=== PATIENT | female | born 1960 | race Caucasian/White ===

== ENCOUNTER 2020-06-07 10:44 | Outpatient (REF) | payer OTHER, SELFPAY ==
--- NOTE | 2020-06-07 10:48 | MM_ITS ---
EXAMINATION: BONE DENSITOMETRY CLINICAL INDICATION: Osteopenia. COMPARISON: Previous BD dated 04/02/2017 and baseline BD dated 08/15/2010. TECHNIQUE: Using a Viewglass DXA System (software version: 13.1) manufactured by [employer], dual-energy x-ray absorptiometry was performed of the lumbar spine and left hip. The images are of good technical quality. Summary results are attached. FINDINGS: AP SPINE L1-L4: Current: BMD 1.063 g/cm2, Z-score -0.1, T-score -1.0, normal, 2.1% increase from previous, 1.6% decrease from baseline (<5% change is not significant). Prior: BMD 1.041 g/cm2. Baseline: BMD 1.080 g/cm2. LEFT FEMUR, NECK: Current: BMD 0.881 g/cm2, Z-score -0.1, T-score -1.1, osteopenia. Prior: BMD 0.805 g/cm2. Baseline: BMD 0.891 g/cm2. LEFT FEMUR, TOTAL: Current: BMD 0.958 g/cm2, Z-score 0.3, T-score -0.4, normal, 3.7% increase from previous, 4.1% increase from baseline (<5% change is not significant). Prior: BMD 0.924 g/cm2. Baseline: BMD 1.080 g/cm2. IDENTIFIED RISK FACTORS: Menopause, family history (parent hip fracture). HISTORY OF FRACTURE: None listed. MEDICATIONS: None listed. MM/XR DEXA axial skeleton IMPRESSION: 1. DIAGNOSIS: Osteopenia based on the lowest T-score value of -1.1 in the femoral neck applying World Health Organization criteria. 2. 10-YEAR FRACTURE RISK PREDICTION, FRAX: Major osteoporotic fracture (clinical spine, forearm, hip or shoulder) 7.8%. Hip fracture 0.2%. 3. Treatment Recommendations: NOF guidelines recommend consideration for treatment in postmenopausal women and men age 50 and older presenting with the following: -A hip or vertebral (clinical or morphometric) fracture. -T-score less than or equal to -2.5 at the femoral neck or spine after appropriate evaluation to exclude secondary causes. -Low bone mass at the hip or spine and a 10-year fracture probability by FRAX of greater than or equal to 3% for hip fracture or greater than or equal to 20% for major osteoporotic fracture based on the [place] adapted WHO algorithm. 4. Other Recommendations: All treatment decisions require clinical judgment and consideration of individual patient factors, including patient preferences, comorbidities, previous drug use, risk factors not captured in the FRAX model (e.g. frailty, falls, vitamin D deficiency, increased bone turnover, interval significant decline in bone density) and possible under or overestimation of fracture risk by FRAX. Additional medical evaluation for secondary cause of low bone mineral density may be appropriate. FUTURE SCAN RECOMMENDATION: People with diagnosed cases of osteoporosis or at high risk for fracture should have regular bone mineral density tests. For patients eligible for Medicare, routine testing is allowed once every 2 years. The testing frequency can be increased to one year for patients who have rapidly progressing disease, those who are receiving or discontinuing medical therapy to restore bone mass, or have additional risk factors.
== END 2020-06-07 10:45 | disposition home or self-care (01) ==
LOC: HO.MAMMO 10:44
PROVIDERS: PCP Internal Medicine; Visit Provider Internal Medicine
DX: M85.80 Other specified disorders of bone density and structure, unspecified site (principal); Z78.0 Asymptomatic menopausal state
CPT/HCPCS: 77080

== ENCOUNTER → 2020-08-28 08:47 | Outpatient (BNVA) | payer OTHER, SELFPAY | PROVIDERS: PCP Internal Medicine; Visit Provider Nurse Practitioner Family ==

== ENCOUNTER → 2020-09-17 09:56 | Outpatient (REF) | payer OTHER, SELFPAY | LOC: HO.SL 09:56 | PROVIDERS: PCP Internal Medicine; Visit Provider Nurse Practitioner Family | DX: Z13.89 Encounter for screening for other disorder (principal) ==

== ENCOUNTER 2021-04-26 12:27 | Outpatient (REF) | payer OTHER, SELFPAY ==
--- NOTE | ~2021-04-26 | US_ITS ---
EXAMINATION: US DIAGNOSTIC ULTRASOUND BREAST, LEFT CLINICAL INFORMATION: Breast pain. COMPARISON: Mammography of same day. TECHNIQUE: Ultrasound of the breast is performed with real-time orona scale imaging and color Doppler. FINDINGS: Targeted left breast ultrasound did not demonstrate any suspicious abnormal mass. No region of architectural distortion. A normal-appearing lymph node is seen at the 3 o'clock location. Results are discussed with the patient at time of visit. US/US breast LT limited IMPRESSION: No mammographic or ultrasound evidence of malignancy. ASSESSMENT: BI-RADS 1: Negative RECOMMENDATION: Routine annual mammography screening due in 12 months.
--- NOTE | ~2021-04-26 | US_ITS ---
EXAMINATION: US DIAGNOSTIC ULTRASOUND BREAST, RIGHT CLINICAL INFORMATION: Pain. COMPARISON: Mammography of same day. TECHNIQUE: Ultrasound of the breast is performed with real-time orona scale imaging and color Doppler. FINDINGS: Targeted right breast ultrasound did not demonstrate any abnormal cystic or solid mass. No region of abnormal distal sound shadowing appreciated. Results are discussed with the patient at time of visit. US/US breast RT limited IMPRESSION: No mammographic or ultrasound evidence of malignancy. ASSESSMENT: BI-RADS 1: Negative RECOMMENDATION: Routine annual mammography screening due in 12 months.
--- NOTE | ~2021-04-26 | MM_ITS ---
EXAMINATION: MM DIAGNOSTIC DIGITAL BREAST TOMOSYNTHESIS, BILATERAL BILATERAL BREAST ULTRASOUND CLINICAL INFORMATION: Bilateral breast pain. Right breast lump 7 to 11 o'clock position. The lifetime risk of breast cancer based on the Tyrer-Cuzick Model is 5.1%. COMPARISON: Mammography: None TECHNIQUE: Digital breast tomosynthesis is performed in both the craniocaudal and mediolateral oblique views along with computer-aided detection (CAD). Synthesized 2D images are generated from the tomosynthesis. Bilateral targeted breast ultrasound. FINDINGS: There are scattered areas of fibroglandular density (ACR BI-RADS breast composition Category b). There are no significant suspicious masses, abnormal calcifications, or other abnormalities. Targeted right breast ultrasound did not demonstrate any abnormal cystic or solid mass. No region of abnormal distal sound shadowing appreciated. Targeted left breast ultrasound did not demonstrate any suspicious abnormal mass. No region of architectural distortion. A normal-appearing lymph node is seen at the 3 o'clock location. Results are discussed with the patient at time of visit. MM/MM tomosynthesis diagnostic BI IMPRESSION: No mammographic or ultrasound evidence of malignancy. ASSESSMENT: BI-RADS 1: Negative RECOMMENDATION: Routine annual mammography screening due in 12 months. This patient's information was entered into a reminder system with a target due date for their next mammogram.
== END 2021-04-26 12:28 | disposition home or self-care (01) ==
LOC: HO.MAMMO 12:27
PROVIDERS: Visit Provider Internal Medicine
DX: N64.4 Mastodynia (principal); N63.11 Unspecified lump in the right breast, upper outer quadrant; N63.21 Unspecified lump in the left breast, upper outer quadrant
CPT/HCPCS: 76642; 77062; 77066

== ENCOUNTER 2021-10-17 10:57 | Outpatient (REF) | payer OTHER, SELFPAY ==
[2021-10-17 11:11] LABS: MANUAL DIFF FLAG NO
[2021-10-17 11:37] LABS: Basophils Percent Auto 0.9 % (0-2); Eosinophils Absolute Auto 0.1 X10*3/uL (0.0-0.4); Eosinophils Percent Auto 1.6 % (0-4); Hematocrit 41.3 % (37.0-47.0); Hemoglobin 14.1 g/dl (12.0-16.0); Imm Gran Abs Auto 0.02 X10*3/uL (0.00-0.03); Imm Gran Pct Auto 0.5 % (0.0-0.4); Lymphocytes Absolute Auto 1.7 X10*3/uL (1.2-4.9); Lymphocytes Percent Auto 40.2 % (20-40); Mean Corpuscular HGB Conc 34.1 g/dl (31.0-35.0); Mean Corpuscular Hemoglobin 31.6 pg (27.0-33.0); Mean Corpuscular Volume 92.6 fL (80.0-98.0); Mean Platelet Volume 9.6 fL (9.4-12.3); Monocytes Absolute Auto 0.3 X10*3/uL (0.1-1.2); Monocytes Percent Auto 6.4 % (2-11); Neutrophils Absolute Auto 2.1 x10*3/uL (2.0-8.3); Neutrophils Percent Auto 50.4 % (45-73); Platelet Count 308 X10*3/uL (160-400); Red Blood Count 4.46 X10*6/uL (4.20-5.50); Red Cell Distribution Width 12.5 % (11.0-16.0); White Blood Count 4.3 X10*3/uL (4.8-10.8)
[2021-10-17 11:53] LABS: Estimated Average Glucose 108 mg/dL; Hemoglobin A1c % 5.4 %
[2021-10-17 12:06] LABS: Appearance Urine CLEAR; Color Urine YELLOW; Glucose Urine UA NEG (NEG); Leukocyte Esterase Urine NEG (NEG); Nitrite Urine NEG (NEG); PH 5.5 (5.0-8.0); Specific Gravity - Urine >= 1.030 (1.005-1.025); Urine Blood 2+ (NEG); Urine Ketones 5 MG/DL (NEG); Urine Protein TRACE MG/DL (NEG-TRACE)
[2021-10-17 12:18] LABS: Alanine Aminotransferase 18 U/L (0-31); Albumin Level 4.3 g/dL (3.5-5.0); Alkaline Phosphatase 60 U/L (39-117); Anion Gap 11 (12-20); Aspartate Amino Transferase 21 U/L (5-31); Bilirubin Total 0.5 mg/dL (0.0-1.0); Blood Urea Nitrogen 17 mg/dL (9-16); Calcium 9.7 mg/dL (8.4-10.2); Carbon Dioxide 30 mmol/L (22-29); Chloride 106 mmol/L (96-108); Cholesterol 218 mg/dL; Estimated Glomerular Filt Rate > 60; Glucose Random 103 mg/dL (60-115); HDL Cholesterol 49 mg/dL; LDL Cholesterol Calculated 156 mg/dl; Potassium 3.7 mmol/L (3.3-5.1); Sodium 143 mmol/L (135-145); Total Protein 7.4 g/dL (6.5-8.0); Triglycerides 68 mg/dL
[2021-10-17 12:24] LABS: Thyroid Stimulating Hormone 0.63 uIU/mL (0.32-4.0); Vitamin D 25-OH Total 40.1 ng/mL (>30)
[2021-10-17 12:30] LABS: Bacteria Urine 1+ /LPF; Squamous Epithelial Cell Urine 3+ /LPF
[2021-10-17 12:31] LABS: Mucus Urine 1+ /LPF; WBC Urine 0-2 /HPF (0-4)
[2021-10-17 12:44] LABS: Folate 17.2 ng/mL (> or = 4.0); Vitamin B12 367 pg/mL (200-900)
== END 2021-10-17 10:58 | disposition home or self-care (01) ==
LOC: HO.LAB 10:57
PROVIDERS: PCP Internal Medicine; Visit Provider Internal Medicine
DX: R73.02 Impaired glucose tolerance (oral) (principal); I10 Essential (primary) hypertension; E78.00 Pure hypercholesterolemia, unspecified; M85.80 Other specified disorders of bone density and structure, unspecified site
CPT/HCPCS: 36415; 80053; 80061; 81001; 82306; 82607; 82746; 83036; 84443; 85025

== ENCOUNTER 2022-07-12 08:33 | Outpatient (REF) | payer OTHER, SELFPAY ==
--- NOTE | ~2022-07-12 | XR_ITS ---
EXAMINATION: XR ABDOMEN KUB CLINICAL INDICATION: Hematuria. COMPARISON: CT abdomen/pelvis 07/20/2009. TECHNIQUE: AP view of the abdomen. FINDINGS: No evidence of radiopaque renal calculi. Nonobstructive bowel gas pattern. Moderate colonic stool content. Small pelvic phleboliths. No acute osseous abnormalities. The visualized lung bases are clear. XR/XR KUB IMPRESSION: 1. No radiopaque renal calculi with the caveat that evaluation is mildly limited due to overlying gaseous distention and stool within the colon. If clinically deemed appropriate, correlation with an ultrasound or CT could be obtained. 2. Nonobstructive bowel gas pattern. 3. Moderate colonic stool content.
== END 2022-07-12 08:34 | disposition home or self-care (01) ==
LOC: HO.XRAY 08:33
PROVIDERS: PCP Internal Medicine; Visit Provider Internal Medicine
DX: R31.9 Hematuria, unspecified (principal)
CPT/HCPCS: 74018

== ENCOUNTER 2022-07-25 10:34 | Outpatient (REF) | payer OTHER, SELFPAY ==
--- NOTE | ~2022-07-25 | MM_ITS ---
EXAMINATION: BONE DENSITOMETRY CLINICAL INDICATION: Osteoporosis. COMPARISON: Previous BD dated 06/07/2020 and baseline BD dated 08/15/2010. TECHNIQUE: Using a Iterable DXA System (software version: 13.1) manufactured by [employer], dual-energy x-ray absorptiometry was performed of the lumbar spine and left hip. The images are of good technical quality. Summary results are attached. FINDINGS: AP SPINE L1-L4: Current: BMD 1.064 g/cm2, Z-score 0.3, T-score -1.0, normal, 0.1% increase from previous, 1.5% decrease from baseline (<5% change is not significant). Prior: BMD 1.063 g/cm2. Baseline: BMD 1.080 g/cm2. LEFT FEMUR, NECK: Current: BMD 0.850 g/cm2, Z-score -0.1, T-score -1.3, osteopenia. Prior: BMD 0.881 g/cm2. Baseline: BMD 0.891 g/cm2. LEFT FEMUR, TOTAL: Current: BMD 0.919 g/cm2, Z-score 0.3, T-score -0.7, normal, 4.1% decrease from previous, 0.1% decrease from baseline (<5% change is not significant). Prior: BMD 0.958 g/cm2. Baseline: BMD 0.920 g/cm2. IDENTIFIED RISK FACTORS: Menopause, family history (parent hip fracture). HISTORY OF FRACTURE: None listed. MEDICATIONS: Vitamin D, bisphosphonate. MM/XR DEXA axial skeleton IMPRESSION: 1. DIAGNOSIS: Osteopenia based on the lowest T-score value of -1.3 in the femoral neck applying World Health Organization criteria. 2. 10-YEAR FRACTURE RISK PREDICTION, FRAX: Not performed in this patient on estrogen or bone building treatments. 3. Treatment Recommendations: NOF guidelines recommend consideration for treatment in postmenopausal women and men age 50 and older presenting with the following: -A hip or vertebral (clinical or morphometric) fracture. -T-score less than or equal to -2.5 at the femoral neck or spine after appropriate evaluation to exclude secondary causes. -Low bone mass at the hip or spine and a 10-year fracture probability by FRAX of greater than or equal to 3% for hip fracture or greater than or equal to 20% for major osteoporotic fracture based on the [place] adapted WHO algorithm. 4. Other Recommendations: All treatment decisions require clinical judgment and consideration of individual patient factors, including patient preferences, comorbidities, previous drug use, risk factors not captured in the FRAX model (e.g. frailty, falls, vitamin D deficiency, increased bone turnover, interval significant decline in bone density) and possible under or overestimation of fracture risk by FRAX. Additional medical evaluation for secondary cause of low bone mineral density may be appropriate. FUTURE SCAN RECOMMENDATION: People with diagnosed cases of osteoporosis or at high risk for fracture should have regular bone mineral density tests. For patients eligible for Medicare, routine testing is allowed once every 2 years. The testing frequency can be increased to one year for patients who have rapidly progressing disease, those who are receiving or discontinuing medical therapy to restore bone mass, or have additional risk factors.
== END 2022-07-25 10:35 | disposition home or self-care (01) ==
LOC: HO.MAMMO 10:34
PROVIDERS: PCP Internal Medicine; Visit Provider Internal Medicine
DX: Z13.820 Encounter for screening for osteoporosis (principal); Z78.0 Asymptomatic menopausal state; M81.0 Age-related osteoporosis without current pathological fracture
CPT/HCPCS: 77080

== ENCOUNTER 2022-08-07 10:17 | Outpatient (REF) | payer OTHER, SELFPAY ==
--- NOTE | ~2022-08-07 | CT_ITS ---
EXAMINATION: CT ABDOMEN AND PELVIS WITHOUT AND WITH CONTRAST CLINICAL INFORMATION: Hematuria. COMPARISON: KUB 07/12/2022. CT abdomen pelvis 07/20/2009. TECHNIQUE: Multidetector volumetric imaging was performed of the abdomen and pelvis before and after the IV administration of 85 mL of Omnipaque 350 intravenous contrast. Sagittal and coronal reformatted images were obtained on the technologist's workstation. This CT examination was performed using dose optimization techniques as appropriate, variously including the following: *Automated exposure control *Adjustment of mA and/or kV according to patient size (this includes techniques or standardized protocols for targeted exams where dose is matched to indication/reason for exam; i.e. extremities or head) *Use of iterative reconstruction technique DLP: 627 mGy-cm FINDINGS: LUNG BASES: The visualized lung bases are unremarkable. LIVER, GALLBLADDER, AND BILIARY TREE: The liver is normal in size, shape, and attenuation. No focal hepatic lesion or biliary ductal dilatation is present. The gallbladder is unremarkable with no evidence of radiopaque gallstones, gallbladder wall thickening, or obvious pericholecystic inflammatory changes. PANCREAS: No discrete mass. No ductal dilatation. SPLEEN: Normal. ADRENAL GLANDS: No adrenal mass. KIDNEYS AND URETERS: The kidneys are normal in size, shape, and attenuation. No hydronephrosis, hydroureter, or calculi seen. No perinephric stranding. BLADDER: Unremarkable GASTROINTESTINAL TRACT: Small hiatal hernia. The small bowel is normal in caliber. The appendix is normal. Severe diverticulosis of the colon. ABDOMINAL WALL: No significant hernia is appreciated. LYMPH NODES: No lymphadenopathy. VASCULAR: No aortic aneurysm. Mild atherosclerosis. PELVIC VISCERA: The uterus and adnexa are unremarkable. OSSEOUS STRUCTURES: No suspicious osseous lesions. CT/CT abdomen pelvis wo/w IV con IMPRESSION: No nephrolithiasis or hydronephrosis. No suspicious renal mass. Colonic diverticulosis. Fleischner guidelines were followed.
[2022-08-07 10:29] LABS: MANUAL DIFF FLAG NO
[2022-08-07 11:36] LABS: Basophils Percent Auto 0.5 % (0-2); Eosinophils Absolute Auto 0.1 X10*3/uL (0.0-0.4); Eosinophils Percent Auto 1.7 % (0-4); Hematocrit 40.9 % (37.0-47.0); Hemoglobin 13.7 g/dl (12.0-16.0); Imm Gran Abs Auto 0.02 X10*3/uL (0.00-0.03); Imm Gran Pct Auto 0.3 % (0.0-0.4); Lymphocytes Percent Auto 30.1 % (20-40); Mean Corpuscular HGB Conc 33.5 g/dl (31.0-35.0); Mean Corpuscular Hemoglobin 31.9 pg (27.0-33.0); Mean Corpuscular Volume 95.3 fL (80.0-98.0); Mean Platelet Volume 9.8 fL (9.4-12.3); Monocytes Absolute Auto 0.5 X10*3/uL (0.1-1.2); Monocytes Percent Auto 8.1 % (2-11); Neutrophils Absolute Auto 3.9 x10*3/uL (2.0-8.3); Neutrophils Percent Auto 59.3 % (45-73); Platelet Count 329 X10*3/uL (160-400); Red Blood Count 4.29 X10*6/uL (4.20-5.50); Red Cell Distribution Width 12.8 % (11.0-16.0); White Blood Count 6.5 X10*3/uL (4.8-10.8)
[2022-08-07 11:49] LABS: Estimated Average Glucose 111 mg/dL; Hemoglobin A1c % 5.5 %
[2022-08-07 12:13] LABS: Urine Cytology See Pathology rpt
[2022-08-07 12:14] LABS: Alanine Aminotransferase 20 U/L (0-31); Albumin Level 4.5 g/dL (3.5-5.0); Alkaline Phosphatase 79 U/L (39-117); Anion Gap 14 (12-20); Aspartate Amino Transferase 18 U/L (5-31); Bilirubin Total 0.5 mg/dL (0.0-1.0); Blood Urea Nitrogen 24 mg/dL (9-16); Calcium 9.6 mg/dL (8.4-10.2); Carbon Dioxide 28 mmol/L (22-29); Chloride 103 mmol/L (96-108); Cholesterol 217 mg/dL; Estimated Glomerular Filt Rate > 60; Glucose Random 98 mg/dL (60-115); HDL Cholesterol 58 mg/dL; LDL Cholesterol Calculated 143 mg/dl; Sodium 141 mmol/L (135-145); Total Protein 7.4 g/dL (6.5-8.0); Triglycerides 81 mg/dL
[2022-08-07 12:18] LABS: Folate 17.8 ng/mL (> or = 4.0); Free T4 (Free Thyroxine) 0.99 ng/dL (0.71-1.85); Thyroid Stimulating Hormone 0.94 uIU/mL (0.32-4.0); Vitamin B12 351 pg/mL (200-900); Vitamin D 25-OH Total 32.9 ng/mL (>30)
[2022-08-07 12:45] LABS: Appearance Urine Clear; Color Urine Dark Yellow; Glucose Urine UA Negative (Negative); Leukocyte Esterase Urine Negative (Negative); Nitrite Urine Negative (Negative); PH 5.5 (5.0-9.0); Specific Gravity - Urine >= 1.030 (1.005-1.025); UMIC TRIGGER UA YES; Urine Blood Small (1+) (Negative); Urine Ketones Negative (Negative); Urine Protein 30 (1+) mg/dL (Neg-Trace)
[2022-08-07 12:52] LABS: Bacteria Urine None Seen (None Seen); Squamous Epithelial Cell Urine 0-2 /HPF (0-2); WBC Urine 0-5 /HPF (0-5)
[2022-08-07] MEDS: iohexoL 350 MG/ML 100 ML INFUS..BTL IV (13:34)
== END 2022-08-07 10:18 | disposition home or self-care (01) ==
LOC: HO.CT 10:17
PROVIDERS: PCP Internal Medicine; Visit Provider Internal Medicine
DX: R31.9 Hematuria, unspecified (principal); E78.00 Pure hypercholesterolemia, unspecified; R73.02 Impaired glucose tolerance (oral)
CPT/HCPCS: 36415; 74178; 80053; 80061; 81001; 82306; 82607; 82746; 83036; 84439; 84443; 85025; 88112; Q9967

== ENCOUNTER 2022-09-05 08:44 | Outpatient (REF) | payer OTHER, SELFPAY ==
[2022-09-05 15:12] LABS: CT PCR NOT DETECTED (Not Detect.); NG PCR NOT DETECTED (Not Detect.)
[2022-09-06 15:10] LABS: BV Int Neg Control Negative (Negative); BV Int Pos Control Positive (Positive)
[2022-09-09 13:49] LABS: HPV mRNA E6/E7 rflx Not Detected (Not Detected)
== END 2022-09-05 08:45 | disposition home or self-care (01) ==
LOC: HO.LNP 08:44
PROVIDERS: PCP Internal Medicine; Visit Provider Advanced Practice Midwife
DX: Z01.419 Encounter for gynecological examination (general) (routine) without abnormal findings (principal); Z11.51 Encounter for screening for human papillomavirus (HPV); R10.2 Pelvic and perineal pain; N89.8 Other specified noninflammatory disorders of vagina
CPT/HCPCS: 0353U; 87480; 87510; 87624; 87660; 88142

== ENCOUNTER 2022-09-26 14:39 | Outpatient (REF) | payer OTHER, SELFPAY ==
--- NOTE | ~2022-09-26 | MM_ITS ---
EXAMINATION: MM DIAGNOSTIC DIGITAL BREAST TOMOSYNTHESIS, BILATERAL TARGETED RIGHT BREAST ULTRASOUND CLINICAL INFORMATION: Lump felt by patient's physician at the 5 o'clock position. The lifetime risk of breast cancer based on the Tyrer-Cuzick Model is 5%. COMPARISON: Mammography: 04/26/2021 and studies dating back to 06/21/2018. TECHNIQUE: Digital breast tomosynthesis is performed in both the craniocaudal and mediolateral oblique views along with computer-aided detection (CAD). Synthesized 2D images are generated from the tomosynthesis. Targeted right breast ultrasound. FINDINGS: There are scattered areas of fibroglandular density (ACR BI-RADS breast composition Category b). There are no significant masses, abnormal calcifications, or other abnormalities. Targeted right breast ultrasound did not demonstrate any abnormal cystic or solid masses. No region of abnormal distal sound shadowing was appreciated. Results are discussed with the patient at time of visit. MM/MM tomosynthesis diagnostic BI IMPRESSION: There are no significant changes from prior study. ASSESSMENT: BI-RADS 1: Negative. RECOMMENDATION: Routine annual mammography screening due in 12 months. Clinical follow up for palpable abnormality not seen on imaging. This patient's information was entered into a reminder system with a target due date for their next mammogram.
== END 2022-09-26 14:40 | disposition home or self-care (01) ==
LOC: HO.MAMMO 14:39
PROVIDERS: PCP Internal Medicine; Visit Provider Internal Medicine
DX: N63.14 Unspecified lump in the right breast, lower inner quadrant (principal)
CPT/HCPCS: 76642; 77062; 77066

== ENCOUNTER 2022-10-02 14:08 | Outpatient (REF) | payer OTHER, SELFPAY ==
--- NOTE | ~2022-10-02 | US_ITS ---
EXAMINATION: US PELVIS CLINICAL INFORMATION: Pain COMPARISON: Previous CT of the abdomen and pelvis July 2022 and pelvic ultrasound April 2019 TECHNIQUE: Ultrasound of the pelvis is performed using both transabdominal and transvaginal transducers along with Doppler. Transvaginal imaging is performed due to inadequate visualization transabdominally. FINDINGS: The uterus is anteverted and measures 6.3 x 3.3 x 4.8 cm in dimension. The uterus is heterogeneous. There are multiple hyperechoic foci probably calcifications. There is an 1.8 x 1.6 x 2.0 cm focal lesion in the fundus questionable for a fibroid. This is decreased in size from prior exam when this measured 2.5 x 2.2 x 2.5 cm. There is a small 3 mm cyst in the lower uterine segment. Endometrial thickness is normal measuring 0.5 cm. There are nabothian cysts in the cervix. The right ovary is normal and measures 1.7 x 0.8 x 1.4 cm. The left ovary is not seen. There is no fluid in the pelvis. US/US pelvic and transvaginal IMPRESSION: Heterogeneous-appearing uterus. Small fundal uterine fibroid. Normal thickness endometrium. Normal right ovary. Left ovary not seen.
== END 2022-10-02 14:09 | disposition home or self-care (01) ==
LOC: HO.US 14:08
PROVIDERS: PCP Internal Medicine; Visit Provider Advanced Practice Midwife
DX: R10.2 Pelvic and perineal pain (principal)
CPT/HCPCS: 76830; 76856

== ENCOUNTER → 2022-10-30 08:30 | Outpatient (BNVA) | payer OTHER, SELFPAY | PROVIDERS: PCP Internal Medicine; Visit Provider Advanced Practice Midwife | DX: Z01.818 Encounter for other preprocedural examination (principal); K21.9 Gastro-esophageal reflux disease without esophagitis; K59.01 Slow transit constipation; Z71.2 Person consulting for explanation of examination or test findings; N64.4 Mastodynia | CPT/HCPCS: 99202; 99212 ==

== ENCOUNTER → 2022-11-28 11:26 | Outpatient (BNVA) | payer OTHER, SELFPAY | PROVIDERS: PCP Internal Medicine; Referring Provider Advanced Practice Midwife; Visit Provider Surgery | DX: N64.4 Mastodynia (principal) | CPT/HCPCS: 99202 ==

== ENCOUNTER 2023-09-11 11:00 | Outpatient (AMB) | payer OTHER, SELFPAY ==
--- NOTE | 2023-09-11 11:02 | A.OFFVIS_ITS ---
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 hematuria Heater Tender Required: Yes Heater Tender Language: Patient Care Manager Name: Catherine CACERES Information Interpreted: non-clinical & clinical Circuit Court Magistrate: Circuit Court Magistrate Present (Catherine Ned NICKI) Accompanied by: Self / Same As Patient Allergies ibuprofen [From Motrin] Allergy (Intermediate, Verified 09/11/23 11:19) ITCHING-VAGINAL, vaginal discomfort sumatriptan [From Imitrex] Allergy (Mild, Verified 09/11/23 11:19) RASH pregabalin Allergy (Unknown, Verified 09/11/23 11:19) swelling acetaminophen Allergy (Verified 09/11/23 11:19) causes vomiting methylprednisolone Allergy (Verified 09/11/23 11:19) vamiting HPI HPI Comments History of Present Illness Details 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 She is doing well with concerns: she reports blood in her urine, no symptoms. Attempting to eat a healthy diet with calcium and vitamin D and stays active with exercise. Currently not sexually active due to husbands medical issues . Denies any vaginal dryness or irritation. STI testing offered; she declines. Last pap smear; 2020. Last mammogram; 2022. Denies any family history of breast, ovarian or colon cancer. FOR[facility]LY [facility], [facility] Medical History Breast pain, right Cervical cancer screening Colon cancer screening Breast pain Osteopenia Asthma Carpal tunnel syndrome Tarsal tunnel syndrome Impaired glucose tolerance Hypercholesterolemia Hypertension Overweight (BMI 25.0-29.9) Migraine Gastroesophageal reflux disease Surgical History (Updated 09/11/23 @ 11:30 by Dominga Moore CNM) History of hysteroscopy History of tubal ligation Keloid scar Family History Father Hypertension Mother High cholesterol Osteoporosis Maternal Aunt Brain tumor Sister Diabetes Poor high blood pressure control Brother Diabetes Poor high blood pressure control Social History Household Members Other:: grandson Housing: Apartment Alcohol intake: never Patient Tobacco Use Status: Never used Tobacco e-Cigarette/Vaping Use: Never Used Second Hand Smoke Exposure: No Current occupational status: unemployed Sexual orientation: Straight/Heterosexual Gender identity: Female Cognitive needs: No Hearing needs: No Vision needs: No Female Reproductive History Menstrual Age of Menarche: 9 Date of last pap smear: 09/05/22 Date of Mammogram: 09/26/22 Review of Systems Const All systems reviewed & are unremarkable except as noted in HPI and below Reports as per HPI Eyes Reports no additional complaints ENT Reports no additional complaints Card Reports no additional complaints Resp Reports no additional complaints GI Reports as per HPI and Reports no additional complaints Reports as per HPI Musc Reports no additional complaints Skin/Breast Reports as per HPI Neuro Reports no additional complaints Psych Reports no additional complaints Endo Reports no additional complaints Adilson/Lymph Reports no additional complaints Aller/Immun Reports no additional complaints Physical Exam Vital Signs: Last Vital Signs BP 134/80 09/11/23 11:03 BMI result Body Mass Index 26.2 Const General: cooperative, healthy appearing, no acute distress, well developed and alert Orientation/consciousness: patient oriented x3 HEENT Head: Yes normal to inspection Eyes General: appearance normal, both eyes and all related structures Neck Neck: Yes normal visual inspection Thyroid: Thyroid normal Chest Chest palpation & inspection: normal inspection of the chest and other (no puckering, dimpling, peau de orange, retraction, discharge, masses) Breast/axilla inspection: normal inspection of the breasts Breast/axilla palpation: normal palpation of the breasts Resp Effort & Inspection: normal respiratory effort GI Inspection: Yes normal to inspection Palpation (GI): Soft to palpation Rectal Exam - Female: deferred General: Yes bladder normal to palpation External Female Exam: normal external appearance and normal appearance of the urethra Speculum Exam - Vagina: normal appearance of the vagina, normal palpation, normal vaginal discharge and vagina atrophic Speculum Exam - Cervix: normal appearance of the cervix and normal palpation Bimanual exam- vagina & uterus: normal bimanual exam, normal palpation, uterine size normal, bladder normal to palpation, normal palpation and non-tender Bimanual Exam- Adnexa, other: no masses Skin General skin exam: no rashes or lesions noted Rashes: no rashes Neuro General: patient oriented x3 Cognition (Neuro): normal cognition Extrem General: Yes normal to inspection Psych Attitude: cooperative Thought process: Normal thought process present Assessment & Plan Assessment & Plan (1) Encounter for well woman exam with routine gynecological exam: Code(s): Z01.419 - Encounter for gynecological examination (general) (routine) without abnormal findings Plan Discussed: Current recommendations for pap smears per ASCCP guidelines. Breast awareness, periodic self breast exams and yearly mammogram. Maintain a healthy lifestyle, well balanced diet including Calcium 1,200 mg and Vitamin D 600 IU daily, and routine exercise. Contact the office with any postmenopausal bleeding. Patient verbalizes understanding and agrees to the plan of care. She was given opportunity to ask questions and all questions were answered to the best of my ability. 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 This note is constructed using voice recognition software. While every effort has been made to ensure accuracy, truck engine technician errors may have been included. Coding Level of Care Code Est Pt Prev Care 40-64y(57864) Diagnoses Encounter for well woman exam with routine gynecological exam Z01.419
[2023-09-11 11:03] VITALS: BP 134/80; BMI 26.2
== END 2023-09-11 13:02 | disposition home or self-care (01) ==
PROVIDERS: Visit Provider Advanced Practice Midwife
DX: Z01.419 Encounter for gynecological examination (general) (routine) without abnormal findings (principal)
CPT/HCPCS: 99396

== ENCOUNTER 2023-09-11 11:00 | Outpatient (REF) | payer OTHER, SELFPAY | END 2023-09-11 11:01 | disposition home or self-care (01) | LOC: HO.LNP 11:00 | PROVIDERS: Visit Provider Advanced Practice Midwife | DX: Z01.419 Encounter for gynecological examination (general) (routine) without abnormal findings (principal); R31.9 Hematuria, unspecified | CPT/HCPCS: 87086; 99396 ==

== ENCOUNTER 2023-09-29 11:05 | Outpatient (REF) | payer OTHER, SELFPAY | END 2023-09-29 11:06 | disposition home or self-care (01) | LOC: HO.MAMMO 11:05 | PROVIDERS: PCP Internal Medicine; Visit Provider Internal Medicine | DX: Z12.31 Encounter for screening mammogram for malignant neoplasm of breast (principal) | CPT/HCPCS: 77063; 77067 ==

== ENCOUNTER → 2023-09-29 11:15 | Outpatient (BNV) | payer OTHER, SELFPAY | PROVIDERS: PCP Internal Medicine; Visit Provider Radiology Diagnostic Radiology | DX: Z12.31 Encounter for screening mammogram for malignant neoplasm of breast (principal) | CPT/HCPCS: 77063; 77067 ==

== ENCOUNTER 2023-11-09 09:26 | Outpatient (AMB) | payer OTHER, SELFPAY ==
[2023-11-09 09:28] VITALS: BP 130/72; PULSE 82; O2SAT 98; BMI 26.3
--- NOTE | 2023-11-09 09:28 | A.OFFPC_ITS ---
Vital Signs 11/09/23 09:28 Height 5 ft 2 in Weight 144 lb BMI 26.3 BP 130/72 Blood Pressure Location Lt brachial Position Sitting Pulse 82 Pulse Source Pulse Oximeter Pulse Oximetry (%) 98 Oxygen Delivery Method Room Air Intake Visit Reasons: follow up Allergies ibuprofen [From Motrin] Allergy (Intermediate, Verified 11/09/23 09:29) ITCHING-VAGINAL, vaginal discomfort sumatriptan [From Imitrex] Allergy (Mild, Verified 11/09/23 09:29) RASH pregabalin Allergy (Unknown, Verified 11/09/23 09:29) swelling acetaminophen Allergy (Verified 11/09/23 09:29) causes vomiting methylprednisolone Allergy (Verified 11/09/23 09:29) vamiting Tobacco use date assessed: 11/09/23 Dental Screening Dental Screen Date: 11/09/23 Did you have a dental visit in the last 12 months?: Yes Did you have a dental problem in the last 6 months where you did not have access to dental care?: No Was dental information given to patient?: Patient has dentist HPI follow up HPI Details 63-year-old female with a history of ALEXUS D migraine, asthma hypertension hypercholesterolemia and impaired glucose tolerance last seen in September 2022. Bone density is up-to-date June 2022. Colonoscopy is due. Mammogram is up-to-date September 2023. BP at home 109-140 / 68 to 91 but most normal [facility] Medical History (Updated 11/09/23 @ 09:48 by Coral Espino MD) Breast pain, right Cervical cancer screening Colon cancer screening Breast pain Osteopenia Asthma Carpal tunnel syndrome Tarsal tunnel syndrome Impaired glucose tolerance Hypercholesterolemia Hypertension Overweight (BMI 25.0-29.9) Migraine Gastroesophageal reflux disease Surgical History (Updated 09/11/23 @ 11:30 by Dominga Moore CNM) History of hysteroscopy History of tubal ligation Keloid scar Family History Father Hypertension Mother High cholesterol Osteoporosis Maternal Aunt Brain tumor Sister Diabetes Poor high blood pressure control Brother Diabetes Poor high blood pressure control Social History Household Members Other:: grandson Housing: Apartment Alcohol intake: never Patient Tobacco Use Status: Never used Tobacco Tobacco use type: Cigarette e-Cigarette/Vaping Use: Never Used Second Hand Smoke Exposure: No Current occupational status: unemployed Sexual orientation: Straight/Heterosexual Gender identity: Female Cognitive needs: No Hearing needs: No Vision needs: No Female Reproductive History Menstrual Age of Menarche: 9 Questionnaire PHQ-9 Over the last 2 weeks, how often have you been bothered by any of the following problems? 1. Little interest or pleasure in doing things: not at all 2. Feeling down, depressed, or hopeless: not at all 3. Trouble falling or staying asleep, or sleeping too much: not at all 4. Feeling tired or having little energy: not at all 5. Poor appetite or overeating: not at all 6. Feeling bad about yourself - or that you are a failure or have let yourself or your family down: not at all 7. Trouble concentrating on things, such as reading the newspaper or watching television: not at all 8. Moving or speaking so slowly that other people could have noticed. Or the opposite - being so fidgety or restless that you have been moving around a lot more than usual: not at all 9. Thoughts that you would be better off or of hurting yourself in some way: not at all Total score: 0 Depression Screening Interpretation: Negative Depression Screening Done: Yes Source: Developed by Drs. Vlad Lew, Tianna Garces, To Werner and colleagues, with an educational reji from [employer]. Thrive Questionnaire Date Thrive assessed: 11/09/23 I am a: Patient What is your living situation today?: I have a steady place to live Within the past 12 months, did the food you bought not last and you didn't have the money to get more?: Never true Within the past 12 months, did you worry whether your food would run out before you got money to buy more?: Never true Do you have trouble paying for medicines?: No Do you have trouble getting transportation to medical appointments?: No Do you have trouble paying your heating and electricity bill?: No Do you have trouble taking care of your child, family member or friend?: No Do you have trouble with day-to-day activities such as bathing, preparing meals, shopping, managing finances, etc.?: No Are you currently unemployed and looking for a job?: No Are you interested in more education?: No Currently or been in a relationship where the following occur: no concerns reported THRIVE Score: 0 AUDIT C Alcohol Use Questionnaire (AUDIT-C) 1. How often do you have a drink containing alcohol?: Never 3. How often do you have six or more drinks on one occasion?: Never Total Score: 0 ANITA-7 AMB Questionnaire ANITA-7 Date ANITA - 7 assessed: 11/09/23 Feeling nervous, anxious, or on edge: 0 = Not at all Not being able to stop or control worryin = Not at all Worrying too much about different things: 0 = Not at all Trouble relaxin = Not at all Being so restless that it is hard to sit still: 0 = Not at all Becoming easily annoyed or irritable: 0 = Not at all Feeling afraid as if something awful might happen: 0 = Not at all Total ANITA-7 score (0-4 normal; 5-9 mild; 10-14 moderate; 15-21 severe): 0 Source: Developed by Drs. Vlad Lew, Tianna Garces, To Werner and colleagues, with an educational reji from [employer]. ANITA-7 Assessment Billing ANITA-7 Assessment Tool: ANITA-7 Assessment 56399 Physical exam (Primary Care) Vital Signs: Last Vital Signs Pulse 82 11/09/23 09:28 BP 130/72 11/09/23 09:28 Pulse Ox 98 11/09/23 09:28 Oxygen Delivery Method Room Air 11/09/23 09:28 BMI result Body Mass Index 26.3 Tobacco/Smoking Status: Tobacco use Status Tobacco use date assessed 11/09/23 11/09/23 09:35 Patient Tobacco Use Status Never used Tobacco 11/09/23 09:35 Tobacco use type Cigarette 11/09/23 09:35 e-Cigarette/Vaping Use Never Used 11/09/23 09:35 PHQ-9: PHQ-9 Score PHQ-9: Total score 0 11/09/23 09:46 Depression Screening Interpretation: Negative Thrive Assessment: Date of Thrive Assessment Date Thrive assessed 11/09/23 11/09/23 09:35 Currently or been in a relationship where the following occur: no concerns reported Const General: alert; No acute distress Eyes Conjunctivae: conjunctivae normal Resp Auscultation: clear to auscultation bilaterally Cardio Rate: regular rate Rhythm: regular rhythm GI Inspection: Yes normal to inspection Extrem General: Yes normal to inspection and No edema Assessment and Plan Assessment & Plan (1) Colon cancer screening: Code(s): Z12.11 - Encounter for screening for malignant neoplasm of colon Plan: Patient is reminded about colonoscopy (2) Gastroesophageal reflux disease: Code(s): K21.9 - Gastro-esophageal reflux disease without esophagitis Qualifiers: Esophagitis presence: esophagitis presence not specified Qualified Code(s): K21.9 - Gastro-esophageal reflux disease without esophagitis Plan: Avoid the foods that causes that usually spicy foods, tomato products, juices, coffee, soda and foods that your sensitive to. After eating do not lie down, allow 3-4 hours before in lie down. And keep the head of bed above 30 degrees to avoid the acid from going up. On omeprazole (3) Migraine: Code(s): G43.909 - Migraine, unspecified, not intractable, without status migrainosus Qualifiers: Intractability: intractable Migraine type: with aura Status migrainosus presence: without status migrainosus Qualified Code(s): G43.119 - Migraine with aura, intractable, without status migrainosus Plan: Have adequate sleep, keep well hydrated, eat healthy. (4) Hypertension: Code(s): I10 - Essential (primary) hypertension Plan: Continue with blood pressure medication. Decrease salt intake and exercise patient takes hydrochlorothiazide 12.5 mg once a day and amitriptyline 10 mg at bedtime (5) Hypercholesterolemia: Code(s): E78.00 - Pure hypercholesterolemia, unspecified Plan: Avoid fried foods, chicken skin, eggs, butter margarine, pastries and meat. Be it pork or beef they have a lot of cholesterol LDL goal of less than 130 and triglyceride of less than 150 (6) Impaired glucose tolerance: Code(s): R73.02 - Impaired glucose tolerance (oral) Plan: Decrease the amount of carbohydrate intake, pasta, bread, rice and potatoes are all sugar and that is aside from all the sweet stuff, remember that fruits are good but they are Sweet also. (7) Asthma: Code(s): J45.909 - Unspecified asthma, uncomplicated Plan: Continue with the albuterol inhaler (8) Osteopenia: Comment: May 2020 osteopenia June 2022 Code(s): M85.80 - Other specified disorders of bone density and structure, unspecified site Plan: Presently on alendronate 70 mg once a week. Bone density due in June 2024 Orders: Orders Comprehensive Met. Panel Today R73.02 - Impaired glucose tolerance (oral) Free T4 (Free Thyroxine) Today R73.02 - Impaired glucose tolerance (oral) Vitamin B12 and Folate Today R73.02 - Impaired glucose tolerance (oral) Complete Blood Count Auto Diff Today R73.02 - Impaired glucose tolerance (oral) Thyroid Stimulating Hormone Today R73.02 - Impaired glucose tolerance (oral) Lipid Panel Today E78.00 - Pure hypercholesterolemia, unspecified, R73.02 - Impaired glucose tolerance (oral) Vitamin D 25-OH Total Today R73.02 - Impaired glucose tolerance (oral) Hemoglobin A1c Today R73.02 - Impaired glucose tolerance (oral) Referrals Gastroenterology Referral Z12.11 - Encounter for screening for malignant neoplasm of colon Medications: Refilled sennosides (Natural Senna Laxative) 17.2 mg (2 x 8.6 mg) PO BEDTIME 180 tabs 3RF constipation K59.00 - Constipation, unspecified omeprazole 40 mg PO DAILY 90 caps 3RF K21.9 - Gastro-esophageal reflux disease without esophagitis hysusub-[id number]-NSL-[id number] 10-90-589-40 mg (Ascomp with Codeine) 1 cap PO Q6H PRN 20 caps 0RF headache 30 days R73.02 - Impaired glucose tolerance (oral) albuterol sulfate 90 mcg/actuation (Ventolin HFA) 2 puffs inhalation Q6H PRN 8.5 grams 0RF for wheezing R73.02 - Impaired glucose tolerance (oral) Coding Level of Care Code Est Pt Level 4 (99292) Diagnoses Colon cancer screening Z12.11 Gastroesophageal reflux disease, unspecified whether esophagitis present K21.9 Esophagitis presence: esophagitis presence not specified Intractable migraine with aura without status migrainosus G43.119 Intractability: intractable Migraine type: with aura Status migrainosus presence: without status migrainosus Hypertension I10 Hypercholesterolemia E78.00 Impaired glucose tolerance R73.02 Asthma J45.909 Osteopenia M85.80 Additional Codes ANITA-7 Assessment Billing - ANITA-7 Assessment Tool: ANITA-7 Assessment [id number] ([id number])
== END 2023-11-09 10:04 | disposition home or self-care (01) ==
PROVIDERS: PCP Internal Medicine; Visit Provider Internal Medicine
DX: K21.9 Gastro-esophageal reflux disease without esophagitis (principal); Z12.11 Encounter for screening for malignant neoplasm of colon; G43.119 Migraine with aura, intractable, without status migrainosus; I10 Essential (primary) hypertension; E78.00 Pure hypercholesterolemia, unspecified; R73.02 Impaired glucose tolerance (oral); J45.909 Unspecified asthma, uncomplicated; M85.80 Other specified disorders of bone density and structure, unspecified site
CPT/HCPCS: 99214

== ENCOUNTER 2024-02-09 12:30 | Outpatient (AMB) | payer OTHER, SELFPAY ==
--- NOTE | 2024-02-09 12:38 | AM.OFFWIN_ITS ---
Intake Vital Signs 02/09/24 12:39 BP 140/90 H Blood Pressure Location Lt brachial Position Sitting Pulse 89 Pulse Source Pulse Oximeter Pulse Oximetry (%) 97 Oxygen Delivery Method Room Air Intake Visit Reasons: EP- LT abdomen pain Intake Note: Patient here for left abdominal pain that has been present for about 4 days. Patient Tobacco Use Status: Never used Tobacco Allergies ibuprofen [From Motrin] Allergy (Intermediate, Verified 02/09/24 12:40) ITCHING-VAGINAL, vaginal discomfort sumatriptan [From Imitrex] Allergy (Mild, Verified 02/09/24 12:40) RASH pregabalin Allergy (Unknown, Verified 02/09/24 12:40) swelling acetaminophen Allergy (Verified 02/09/24 12:40) causes vomiting methylprednisolone Allergy (Verified 02/09/24 12:40) vamiting Do you need a note to return to daycare/school/sports/work: No HPI HPI Comments History of Present Illness Details Patient is a 63-year-old female complaining of left-sided flank pain that goes into her left abdomen for 4 days. She states she has also moving her bowels more than normal but denies any liquid, bloody or black stool. She denies any fevers nausea or vomiting. She denies any new foods or new medications or history of kidney stones. [facility] Medical History (Updated 02/09/24 @ 13:38 by Matilde Rao PA-C) Breast pain, right Cervical cancer screening Colon cancer screening Breast pain Osteopenia Asthma Carpal tunnel syndrome Tarsal tunnel syndrome Impaired glucose tolerance Hypercholesterolemia Hypertension Overweight (BMI 25.0-29.9) Migraine Gastroesophageal reflux disease Surgical History (Updated 09/11/23 @ 11:30 by Dominga Moore CNM) History of hysteroscopy History of tubal ligation Keloid scar Family History Father Hypertension Mother High cholesterol Osteoporosis Maternal Aunt Brain tumor Sister Diabetes Poor high blood pressure control Brother Diabetes Poor high blood pressure control Social History Household Members Other:: grandson Housing: Apartment Alcohol intake: never Patient Tobacco Use Status: Never used Tobacco Tobacco use type: Cigarette e-Cigarette/Vaping Use: Never Used Second Hand Smoke Exposure: No Current occupational status: unemployed Sexual orientation: Straight/Heterosexual Gender identity: Female Cognitive needs: No Hearing needs: No Vision needs: No Female Reproductive History Menstrual Age of Menarche: 9 Review of Systems Const All systems reviewed & are unremarkable except as noted in HPI and below Physical Exam Vital Signs: Last Vital Signs Pulse 89 02/09/24 12:39 BP 140/90 H 02/09/24 12:39 Pulse Ox 97 02/09/24 12:39 Oxygen Delivery Method Room Air 02/09/24 12:39 Const General: cooperative, healthy appearing, comfortable, no acute distress and well developed Orientation/consciousness: patient oriented x3 Limitations: no limitations HEENT Head: Yes normal to inspection Eyes General: appearance normal, both eyes and all related structures Neck Neck: Yes normal visual inspection and Yes full ROM Resp Effort & Inspection: normal respiratory effort and able to speak in complete sentences Auscultation: clear to auscultation bilaterally Cardio Rate: regular rate Rhythm: regular rhythm Heart sounds: normal S1 and S2 GI Inspection: Yes normal to inspection Palpation (GI): Soft to palpation and Tenderness to palpation present (GI) in the LLQ and in the LUQ Skin General skin exam: no rashes or lesions noted Neuro General: patient oriented x3 Extrem General: Yes normal to inspection Results AMB Urinalysis, Automated UA Leukoctes 0 Daryl/uL Last Edit by NATALIE Chapman on 02/09/24 13:36 UA Nitrite Negative Last Edit by NATALIE Chapman on 02/09/24 13:36 UA Urobilinogen 0.2 mg/dL Last Edit by NATALIE Chapman on 02/09/24 13:36 UA Protein 0 mg/dL Last Edit by Tiff Das CCM on 02/09/24 13:36 UA pH 7.0 Last Edit by NATALIE Chapman on 02/09/24 13:36 UA Blood 10 Ayush/uL Last Edit by NATALIE Chapman on 02/09/24 13:36 UA Specific [place] 1.010 Last Edit by NATALIE Chapman on 02/09/24 13:36 UA Ketone Negative Last Edit by NATALIE Chapman on 02/09/24 13:36 UA Bilirubin 0 mg/dL Last Edit by NATALIE Chapman on 02/09/24 13:36 UA Glucose 0 mg/dL Last Edit by NATALIE Chapman on 02/09/24 13:36 Results Reviewed Results Reviewed: Laboratory Last Values Urine pH (Auto) 7.0 02/09/24 13:35 Specific [place] (Auto) 1.010 02/09/24 13:35 Urine Protein (Auto) 0 mg/dL 02/09/24 13:35 Glucose (UA)(Auto) 0 mg/dL 02/09/24 13:35 Urine Ketones (Auto) Negative 02/09/24 13:35 Urine Blood (Auto) 10 Ayush/uL 02/09/24 13:35 Urine Nitrite (Auto) Negative 02/09/24 13:35 Urine Bilirubin (Auto) 0 mg/dL 02/09/24 13:35 Urine Urobilinogen (Auto) 0.2 mg/dL 02/09/24 13:35 Leukocyte Esterase (Auto) 0 Daryl/uL 02/09/24 13:35 Assessment & Plan Assessment & Plan (1) Kidney stone on left side: Code(s): N20.0 - Calculus of kidney Plan: UA positive for blood, CVA tenderness and left-sided abdominal/flank pain, most likely kidney stones, sent to ED to rule out hydronephrosis, further workup. Called [facility] ED with expect Plan see above Orders: Orders AMB Urinalysis Automated Today Z13.9 - Encounter for screening, unspecified Coding Level of Care Code Est Pt Level 5 (59681) Diagnoses Kidney stone on left side N20.0
[2024-02-09 12:39] VITALS: BP 140/90; PULSE 89; O2SAT 97
== END 2024-02-09 13:58 | disposition home or self-care (01) ==
PROVIDERS: PCP Internal Medicine; Visit Provider Physician Assistant
DX: N20.0 Calculus of kidney (principal)
CPT/HCPCS: 81003; 99214

== ENCOUNTER 2024-03-30 12:18 | Outpatient (AMB) | payer OTHER, SELFPAY ==
--- NOTE | 2024-03-30 12:21 | A.OFFPC_ITS ---
Vital Signs 03/30/24 12:22 Height 5 ft 2 in Weight 64.864 kg BMI 26.2 BP 132/86 Blood Pressure Location Lt brachial Position Sitting Pulse 78 Pulse Source Pulse Oximeter Pulse Oximetry (%) 98 Oxygen Delivery Method Room Air Intake Visit Reasons: Annual Exam Intake Note: Patient here for an annual physical exam Change Management Expert Required: No Accompanied by: Spouse Allergies ibuprofen [From Motrin] Allergy (Intermediate, Verified 03/30/24 12:27) ITCHING-VAGINAL, vaginal discomfort sumatriptan [From Imitrex] Allergy (Mild, Verified 03/30/24 12:27) RASH pregabalin Allergy (Unknown, Verified 03/30/24 12:27) swelling acetaminophen Allergy (Verified 03/30/24 12:27) causes vomiting methylprednisolone Allergy (Verified 03/30/24 12:27) vamiting Medication List - Last Reconciled 03/30/24 by Coral Espino, albuterol sulfate 90 mcg/actuation (Ventolin HFA) 2 puffs inhalation Q6H PRN alendronate 70 mg PO QWEEK cetirizine (Zyrtec) 10 mg PO DAILY cholecalciferol (vitamin D3) 50 mcg PO DAILY 90 days fbutbui-qbsygjekdj-CKM-caff 34-81-626-40 mg (Ascomp with Codeine) 1 cap PO Q6H PRN 30 days hydrochlorothiazide 25 mg PO DAILY lorazepam 1 mg PO BEDTIME PRN 90 days omeprazole 40 mg PO DAILY sennosides (Natural Senna Laxative) 17.2 mg (2 x 8.6 mg) PO BEDTIME Tobacco use date assessed: 11/09/23 Dental Screening Dental Screen Date: 03/30/24 Did you have a dental visit in the last 12 months?: No Did you have a dental problem in the last 6 months where you did not have access to dental care?: No Was dental information given to patient?: Patient has dentist HPI Annual Exam HPI Details 63-year-old female with a history of ALEXUS D migraine hypertension hypercholesterolemia impaired glucose tolerance asthma and osteopenia coming in for physical exam last seen in 11/16/2023. Patient's bone density is up-to-date June 2022, colon test is due, mammogram is up-to-date and up-to-date with Pap smears. Review of the notes in February 10 was in the emergency room complaining of abdominal pain left-sided CT was negative. Patient states has been drinking a lot of water till the night and so has been urinating 4 times a night. Discussed the problem of getting headaches because of not really sleeping well. Avoid drinking any fluids 2 hours before sleep. It is recommended for her to drink enough fluids during the daytime. [facility] Medical History (Updated 03/30/24 @ 12:27 by Coral Espino MD) Paronychia Snoring Breast pain, right Cervical cancer screening Colon cancer screening Osteopenia Asthma Carpal tunnel syndrome Tarsal tunnel syndrome Impaired glucose tolerance Hypercholesterolemia Hypertension Overweight (BMI 25.0-29.9) Migraine Gastroesophageal reflux disease Surgical History History of hysteroscopy History of tubal ligation Keloid scar Family History Father Hypertension Mother High cholesterol Osteoporosis Maternal Aunt Brain tumor Sister Diabetes Poor high blood pressure control Brother Diabetes Poor high blood pressure control Social History Household Members Other:: grandson Housing: Apartment Alcohol intake: never Patient Tobacco Use Status: Never used Tobacco Tobacco use type: Cigarette e-Cigarette/Vaping Use: Never Used Second Hand Smoke Exposure: No service: No Current occupational status: unemployed Sexual orientation: Straight/Heterosexual Gender identity: Female Cognitive needs: No Hearing needs: No Vision needs: No Female Reproductive History Menstrual Age of Menarche: 9 Questionnaire PHQ-9 Over the last 2 weeks, how often have you been bothered by any of the following problems? 1. Little interest or pleasure in doing things: more than half the days 2. Feeling down, depressed, or hopeless: several days 3. Trouble falling or staying asleep, or sleeping too much: several days 4. Feeling tired or having little energy: more than half the days 5. Poor appetite or overeating: several days 6. Feeling bad about yourself - or that you are a failure or have let yourself or your family down: several days 7. Trouble concentrating on things, such as reading the newspaper or watching television: several days 8. Moving or speaking so slowly that other people could have noticed. Or the opposite - being so fidgety or restless that you have been moving around a lot more than usual: several days 9. Thoughts that you would be better off or of hurting yourself in some way: not at all Total score: 10 Source: Developed by Drs. Vlad Lew, Tianna Garces, To Werner and colleagues, with an educational reji from [employer]. Thrive Questionnaire Date Thrive assessed: 03/30/24 I am a: Patient What is your living situation today?: I have a steady place to live Within the past 12 months, did the food you bought not last and you didn't have the money to get more?: Sometimes True Within the past 12 months, did you worry whether your food would run out before you got money to buy more?: Often true Do you have trouble paying for medicines?: No Do you have trouble getting transportation to medical appointments?: No Do you have trouble paying your heating and electricity bill?: No Do you have trouble taking care of your child, family member or friend?: Yes Do you have trouble with day-to-day activities such as bathing, preparing meals, shopping, managing finances, etc.?: Yes Are you currently unemployed and looking for a job?: No Are you interested in more education?: No THRIVE Score: 2 ANITA-7 AMB Questionnaire ANITA-7 Date ANITA - 7 assessed: 11/09/23 Source: Developed by Drs. Vlad Lew, Tianna Garces, To Werner and colleagues, with an educational reji from [employer]. Review of Systems Const Denies poor appetite and Denies weakness Eyes Denies no additional complaints ENT Reports Normal hearing present, Denies dizziness, Denies nasal congestion, Denies tinnitus and Denies sore throat Card Denies chest pain, Denies syncope, Denies rapid heart rate and Denies dyspnea Resp Denies cough and Denies dyspnea GI Denies change in stool character, Reports constipation, Denies diarrhea, Denies nausea and Denies vomiting Denies urinary frequency, Denies difficulty voiding and Denies dysuria Neuro Reports Normal hearing present, Denies confusion, Denies dizziness, Denies syncope and Denies weakness Psych Denies confusion Physical exam (Primary Care) Vital Signs: Last Vital Signs Pulse 78 03/30/24 12:22 BP 132/86 03/30/24 12:22 Pulse Ox 98 03/30/24 12:22 Oxygen Delivery Method Room Air 03/30/24 12:22 BMI result Body Mass Index 26.2 Tobacco/Smoking Status: Tobacco use Status Tobacco use date assessed 11/09/23 03/30/24 12:27 Patient Tobacco Use Status Never used Tobacco 03/30/24 12:27 Tobacco use type Cigarette 03/30/24 12:27 e-Cigarette/Vaping Use Never Used 03/30/24 12:27 PHQ-9: PHQ-9 Score PHQ-9: Total score 10 03/30/24 12:31 Thrive Assessment: Date of Thrive Assessment Date Thrive assessed 03/30/24 03/30/24 12:27 Const General: No confusion Orientation/consciousness: No confusion HENMT Head: Yes normocephalic Ears: external ears normal and TM's normal bilaterally Face and sinus: Yes normal facial exam Mouth: moist mucous membranes Throat: Yes tonsils normal Eyes Conjunctivae: conjunctivae normal Pupils: Equal, round and reactive pupils present and Pupil accommodation reflex normal Direct Ophthalmoscopy: normal light reflex Neck Neck: No lymphadenopathy Thyroid: Thyroid normal Chest Chest palpation & inspection: normal inspection of the chest Resp Effort & Inspection: normal respiratory effort and no audible wheezes Auscultation: clear to auscultation bilaterally, no crackles, no wheezes and lung sounds not diminished Cardio Rate: regular rate Rhythm: regular rhythm Peripheral pulses: radial pulses present and dorsalis pedis present GI Other: Patient will be seeing Gastroenterology this month Palpation (GI): no masses Auscultation: normal bowel sounds and normoactive bowel sounds Rectal Exam - Female: deferred Skin General skin exam: no rashes or lesions noted Rashes: no rashes Neuro General: No confusion Cranial nerves: Yes Equal, round and reactive pupils present and Yes Normal hearing present Cognition (Neuro): normal cognition Gait exam (Neuro): Normal gait present Motor exam (neuro): 5/5 motor strength present throughout Deep tendon reflexes (DTR's): Right brachioradialis reflex intensity grade: 2+, Left brachioradialis reflex intensity grade: 2+, Right patellar reflex intensity grade: 2+ and Left patellar reflex intensity grade: 2+ Extrem General: No edema Office Procedures Flu Questionnaire Does the patient have a severe egg allergy?: No Does the patient have severe life threatening allergies?: No Does the patient have a fever or illness today?: No Has the patient ever had Guillain-[place] Syndrome?: No Has the patient ever had any past reaction to a flu shot?: No Immunizations Fluarix Triv 5423-4404 (PF) 45 mcg (15 mcg x 3)/0.5 mL IM syringe Performing Provider: Coral Espino MD Performing Location: [facility] [place] [facility] Administered by: NICKI Taylor on 03/30/24 12:59 Dose Route Admin Location Dispensed Lot Number Expiration Date NDC [employer] 0.5 mL IM Left Deltoid 0.5 mL [id number] 12/26/24 [id number] [email or web address] VIS Given Date VIS Provided VIS Publication Date 03/30/24 Single Vaccine 21 Eligibility Eligibility Date Funding Source Not [facility] Eligible 03/30/24 Private Coding Level of Care Code Est Pt Prev Care 40-64y(55893) Diagnoses Annual physical exam Z00.00 Colon cancer screening Z12.11 Intractable migraine with aura without status migrainosus G43.119 Intractability: intractable Migraine type: with aura Status migrainosus presence: without status migrainosus Gastroesophageal reflux disease, unspecified whether esophagitis present K21.9 Esophagitis presence: esophagitis presence not specified Hypertension I10 Hypercholesterolemia E78.00 Impaired glucose tolerance R73.02 Asthma J45.909 Generalized anxiety disorder F41.1 Osteopenia M85.80 Assessment & Plan Assessment & Plan (1) Annual physical exam: Code(s): Z00.00 - Encounter for general adult medical examination without abnormal findings Category: Medical Plan: Patient is advised to eat healthy, keep well hydrated, keep active and have adequate sleep. (2) Colon cancer screening: Code(s): Z12.11 - Encounter for screening for malignant neoplasm of colon Category: Medical Plan: Patient has a schedule this month (3) Migraine: Code(s): G43.909 - Migraine, unspecified, not intractable, without status migrainosus Category: Medical Qualifiers: Intractability: intractable Migraine type: with aura Status migrainosus presence: without status migrainosus Qualified Code(s): G43.119 - Migraine with aura, intractable, without status migrainosus Plan: Keep well hydrated have adequate sleep. (4) Gastroesophageal reflux disease: Code(s): K21.9 - Gastro-esophageal reflux disease without esophagitis Category: Medical Qualifiers: Esophagitis presence: esophagitis presence not specified Qualified Code(s): K21.9 - Gastro-esophageal reflux disease without esophagitis Plan: Avoid the foods that causes that usually spicy foods, tomato products, juices, coffee, soda and foods that your sensitive to. After eating do not lie down, allow 3-4 hours before in lie down. And keep the head of bed above 30 degrees to avoid the acid from going up. (5) Hypertension: Code(s): I10 - Essential (primary) hypertension Category: Medical Plan: Continue with blood pressure medication. Decrease salt intake and exercise patient on hydrochlorothiazide 25 mg once a day (6) Hypercholesterolemia: Code(s): E78.00 - Pure hypercholesterolemia, unspecified Category: Medical Plan: Avoid fried foods, chicken skin, eggs, butter margarine, pastries and meat. Be it pork or beef they have a lot of cholesterol LDL goal of less than 130 and triglyceride of less than 150 (7) Impaired glucose tolerance: Code(s): R73.02 - Impaired glucose tolerance (oral) Category: Medical Plan: Decrease the amount of carbohydrate intake, pasta, bread, rice and potatoes are all sugar and that is aside from all the sweet stuff, remember that fruits are good but they are Sweet also. (8) Asthma: Code(s): J45.909 - Unspecified asthma, uncomplicated Category: Medical Plan: Albuterol inhaler as needed (9) Generalized anxiety disorder: Comment: decline counselling Code(s): F41.1 - Generalized anxiety disorder Category: Medical Plan: Continue with present medication (10) Osteopenia: Comment: May 2020 osteopenia June 2022 Code(s): M85.80 - Other specified disorders of bone density and structure, unspecified site Category: Medical Plan: Patient on alendronate continue with the medication and bone density next year. Orders: Orders Influenza [id number] Immunization Today Z23 - Encounter for immunization Medications: New hydrochlorothiazide 25 mg PO DAILY 90 tabs 1RF I10 - Essential (primary) hypertension Fluarix Triv [id number] (PF) (flu vacc [id number] 6mos up(PF)) 0.5 mL IM ONCE 0.5 mL 0RF NS Z23 - Encounter for immunization Refilled pztsaey-euvifjjyxp-BHA-caff 55-33-779-40 mg (Ascomp with Codeine) 1 cap PO Q6H PRN 20 caps 0RF headache 30 days R73.02 - Impaired glucose tolerance (oral) Discontinued hydrochlorothiazide Discontinued Reason: Doctor's Order 25 mg PO DAILY I10 - Essential (primary) hypertension
[2024-03-30 12:22] VITALS: BP 132/86; PULSE 78; O2SAT 98; BMI 26.2
== END 2024-03-30 12:59 | disposition home or self-care (01) ==
PROVIDERS: PCP Internal Medicine; Visit Provider Internal Medicine
DX: Z00.00 Encounter for general adult medical examination without abnormal findings (principal); Z12.11 Encounter for screening for malignant neoplasm of colon; G43.119 Migraine with aura, intractable, without status migrainosus; K21.9 Gastro-esophageal reflux disease without esophagitis; I10 Essential (primary) hypertension; E78.00 Pure hypercholesterolemia, unspecified; R73.02 Impaired glucose tolerance (oral); J45.909 Unspecified asthma, uncomplicated; F41.1 Generalized anxiety disorder; M85.80 Other specified disorders of bone density and structure, unspecified site; Z23 Encounter for immunization

== ENCOUNTER → 2024-03-30 12:18 | Outpatient (BNVA) | payer OTHER, SELFPAY | PROVIDERS: PCP Internal Medicine; Visit Provider Internal Medicine | DX: Z00.01 Encounter for general adult medical examination with abnormal findings (principal); Z23 Encounter for immunization; G43.119 Migraine with aura, intractable, without status migrainosus; K21.9 Gastro-esophageal reflux disease without esophagitis; I10 Essential (primary) hypertension; E78.00 Pure hypercholesterolemia, unspecified; R73.02 Impaired glucose tolerance (oral); J45.909 Unspecified asthma, uncomplicated; F41.1 Generalized anxiety disorder; M85.80 Other specified disorders of bone density and structure, unspecified site | CPT/HCPCS: 90471; 90656; 96127; 99396 ==

== ENCOUNTER 2024-04-26 11:14 | Outpatient (AMB) | payer OTHER, SELFPAY ==
[2024-04-26 11:16] VITALS: BP 130/74; PULSE 90; O2SAT 95; BMI 26.5
--- NOTE | 2024-04-26 11:16 | MHC.OFFVIS ---
Vital Signs 04/26/24 11:16 Height 5 ft 2 in Weight 145 lb 1.027 oz BMI 26.5 BP 130/74 Blood Pressure Location Rt brachial Position Sitting Pulse 90 Pulse Source Pulse Oximeter Pulse Oximetry (%) 95 Oxygen Delivery Method Room Air Intake Visit Reasons: [place] scrn Intake Note: Relevant Flags or Indicators ? Requires Sugar Reprocess Operator Head? Gaviota Roca presents in office today for a scheduled colo consult. ~10 year recall. CC; No recent labs, diagnostics, or med orders placed. ? Relevant GI Sx as reported per pt? None ? Hx of any recent surgeries? None Sugar Reprocess Operator Head Required: Yes Sugar Reprocess Operator Head Services: Sugar Reprocess Operator Head Present Allergies ibuprofen [From Motrin] Allergy (Intermediate, Verified 04/26/24 11:17) ITCHING-VAGINAL, vaginal discomfort sumatriptan [From Imitrex] Allergy (Mild, Verified 04/26/24 11:17) RASH pregabalin Allergy (Unknown, Verified 04/26/24 11:17) swelling acetaminophen Allergy (Verified 04/26/24 11:17) causes vomiting methylprednisolone Allergy (Verified 04/26/24 11:17) vamiting HPI HPI [place] scrn: Details: 63 year old? female here today for pre colonoscopy screening.? Patient was sent to us by her PCP.? Last colonoscopy was normal in 2012. Patient reports occasional acid reflux, taking omeprazole 40 mg and for the most part her symptoms are suppressed. Patient take Senokot daily and that helps her moving her bowels better. Patient denies any gastrointestinal symptoms in the past or at present.? Denies any personal or family history of gastrointestinal disease, colon polyps, or CRC.? Denies history of difficulty with sedation or anesthesia in the past.? Diagnosed with sleep apnea, not using CPAP. Denies any history of cardiac, renal, pulmonary, or hepatic disease.?? No history of infectious? diseases like hepatitis A, B, C, HIV or tuberculosis.? Patient is not on any anticoagulation [facility] Medical History Paronychia Snoring Breast pain, right Cervical cancer screening Colon cancer screening Osteopenia Asthma Carpal tunnel syndrome Tarsal tunnel syndrome Impaired glucose tolerance Hypercholesterolemia Hypertension Overweight (BMI 25.0-29.9) Migraine Gastroesophageal reflux disease Surgical History History of hysteroscopy History of tubal ligation Keloid scar Family History Father Hypertension Mother High cholesterol Osteoporosis Maternal Aunt Brain tumor Sister Diabetes Poor high blood pressure control Brother Diabetes Poor high blood pressure control Social History Household Members Other:: grandson Housing: Apartment Alcohol intake: never Patient Tobacco Use Status: Never used Tobacco Tobacco use type: Cigarette e-Cigarette/Vaping Use: Never Used Second Hand Smoke Exposure: No service: No Current occupational status: unemployed Sexual orientation: Straight/Heterosexual Gender identity: Female Cognitive needs: No Hearing needs: No Vision needs: No Female Reproductive History Menstrual Age of Menarche: 9 Review of Systems Const Denies weight gain and Denies weight loss ENT Reports no additional complaints, Denies dysphagia and Denies odynophagia Card Reports no additional complaints Resp Reports no additional complaints GI Denies abdominal pain, Denies belching, Denies melena, Denies bloating, Denies change in bowel habits, Denies dysphagia, Denies excessive flatus, Denies dyspepsia, Denies heartburn, Denies diarrhea, Denies loose stools, Denies nausea, Denies odynophagia and Denies vomiting Musc Reports no additional complaints Neuro Reports no additional complaints Psych Reports no additional complaints Endo Reports no additional complaints Physical Exam Vital Signs: Last Vital Signs Pulse 90 04/26/24 11:16 BP 130/74 04/26/24 11:16 Pulse Ox 95 04/26/24 11:16 Oxygen Delivery Method Room Air 04/26/24 11:16 BMI result Body Mass Index 26.5 Assessment & Plan Assessment & Plan (1) Colon cancer screening: Code(s): Z12.11 - Encounter for screening for malignant neoplasm of colon Category: Medical (2) Gastroesophageal reflux disease: Code(s): K21.9 - Gastro-esophageal reflux disease without esophagitis Category: Medical Qualifiers: Esophagitis presence: esophagitis presence not specified Qualified Code(s): K21.9 - Gastro-esophageal reflux disease without esophagitis (3) Long-term current use of proton pump inhibitor therapy: Code(s): Z79.899 - Other [facility] (current) drug therapy Plan Patient denies any GI, cardiac or respiratory symptoms.? However patient does report that she takes omeprazole daily and states that her symptoms are suppressed for the most part. Patient reports to be on this medications for very long time. Denies any nausea or vomiting. Denies any epigastric pain, however will send patient for upper endoscopy, long treatment of PPI. Avoid dietary triggers and late night snacking. Denies any issues with anesthesia in the past.? Denies any history of sleep apnea.? No history infectious diseases in the past or present.? Not on any anticoagulation therapy.? No family or personal history of colon cancer or polyps.? Patient denies melena, hematochezia, unintentional weight loss or ribbon like stools.? Discussed at length the pre-procedure,? prep, diet & medications as well as what to expect prior, during and after the procedure.?? Stressed the importance of good bowel prep.? Recommended the use of Vaseline or Calmoseptine OTC & baby wipes with bowel movements to promote comfort.? ?Patient verbalizes understanding and agrees to plan of care.? She was given the opportunity to ask questions and all questions answered.? We will see her after the procedure.? Medications: New bisacodyl (Dulcolax (bisacodyl)) take 4 tabs at noon the day before your colonoscopy 20 mg (4 x 5 mg) PO ONCE 4 tabs 0RF 1 day Z12.11 - Encounter for screening for malignant neoplasm of colon polyethylene glycol 3350 (Miralax) As directed by gastroenterology department at [facility] 238 grams PO ONCE 238 grams 0RF Z12.11 - Encounter for screening for malignant neoplasm of colon Coding Level of Care Code New Pt Level 3 (22180) Diagnoses Colon cancer screening Z12.11 Gastroesophageal reflux disease, unspecified whether esophagitis present K21.9 Esophagitis presence: esophagitis presence not specified Long-term current use of proton pump inhibitor therapy Z79.899
== END 2024-04-26 12:06 | disposition home or self-care (01) ==
PROVIDERS: PCP Internal Medicine; Visit Provider Nurse Practitioner Family
DX: K21.9 Gastro-esophageal reflux disease without esophagitis (principal); Z01.818 Encounter for other preprocedural examination; Z12.11 Encounter for screening for malignant neoplasm of colon; Z79.899 Other long term (current) drug therapy
CPT/HCPCS: 99213

== ENCOUNTER → 2024-04-26 11:14 | Outpatient (BNVA) | payer OTHER, SELFPAY | PROVIDERS: PCP Internal Medicine; Visit Provider Nurse Practitioner Family | DX: Z01.818 Encounter for other preprocedural examination (principal); K21.9 Gastro-esophageal reflux disease without esophagitis; Z79.899 Other long term (current) drug therapy | CPT/HCPCS: 99212 ==

== ENCOUNTER 2024-07-19 10:35 | Outpatient (REF) | payer OTHER, SELFPAY ==
[2024-07-19 10:47] LABS: MANUAL DIFF FLAG NO
[2024-07-19 11:44] LABS: Basophils Percent Auto 0.6 % (0-2); Eosinophils Absolute Auto 0.1 X10*3/uL (0.0-0.4); Eosinophils Percent Auto 0.7 % (0-4); Hematocrit 40.9 % (37.0-47.0); Hemoglobin 13.5 g/dl (12.0-16.0); Imm Gran Abs Auto 0.03 X10*3/uL (0.00-0.03); Imm Gran Pct Auto 0.4 % (0.0-0.4); Lymphocytes Absolute Auto 1.7 X10*3/uL (1.2-4.9); Lymphocytes Percent Auto 24.6 % (20-40); Mean Corpuscular Hemoglobin 31.2 pg (27.0-33.0); Mean Corpuscular Volume 94.5 fL (80.0-98.0); Mean Platelet Volume 9.7 fL (9.4-12.3); Monocytes Absolute Auto 0.5 X10*3/uL (0.1-1.2); Monocytes Percent Auto 6.9 % (2-11); Neutrophils Absolute Auto 4.6 x10*3/uL (2.0-8.3); Neutrophils Percent Auto 66.8 % (45-73); Platelet Count 340 X10*3/uL (160-400); Red Blood Count 4.33 X10*6/uL (4.20-5.50); Red Cell Distribution Width 12.8 % (11.0-16.0); White Blood Count 6.8 X10*3/uL (4.8-10.8)
[2024-07-19 11:51] LABS: Estimated Average Glucose 108 mg/dL; Hemoglobin A1C 125.0062 umol/L; Hemoglobin A1c % 5.4 % (<6.0); Total Hemoglobin (HGBA1C) 3507.5629 umol/L
[2024-07-19 12:47] LABS: Alanine Aminotransferase 20 U/L (0-31); Albumin Level 4.5 g/dL (3.5-5.0); Alkaline Phosphatase 62 U/L (39-117); Anion Gap 10 (12-20); Aspartate Amino Transferase 22 U/L (5-31); Bilirubin Total 0.4 mg/dL (0.0-1.0); Blood Urea Nitrogen 22 mg/dL (9-16); Calcium 9.1 mg/dL (8.4-10.2); Carbon Dioxide 33 mmol/L (22-29); Chloride 104 mmol/L (96-108); Cholesterol 189 mg/dL (<200); Estimated Glomerular Filt Rate > 60; Glucose Random 90 mg/dL (60-115); HDL Cholesterol 56 mg/dL (>40); LDL Cholesterol Calculated 115 mg/dL (<100); Potassium 3.7 mmol/L (3.3-5.1); Sodium 143 mmol/L (135-145); Triglycerides 93 mg/dL (<150)
[2024-07-19 13:06] LABS: Free T4 (Free Thyroxine) 1.21 ng/dL (0.71-1.85); Thyroid Stimulating Hormone 0.89 uIU/mL (0.32-4.0); Vitamin D 25-OH Total 51.1 ng/mL (>30)
[2024-07-19 13:14] LABS: Folate 16.2 ng/mL (> or = 4.0); Vitamin B12 437 pg/mL (200-900)
== END 2024-07-19 10:36 | disposition home or self-care (01) ==
LOC: HO.LAB 10:35
PROVIDERS: PCP Internal Medicine; Visit Provider Internal Medicine
DX: R73.02 Impaired glucose tolerance (oral) (principal); E78.00 Pure hypercholesterolemia, unspecified
CPT/HCPCS: 36415; 80053; 80061; 82306; 82607; 82746; 83036; 84439; 84443; 85025

== ENCOUNTER 2024-07-20 12:46 | Outpatient (AMB) | payer OTHER, SELFPAY ==
[2024-07-20 12:51] VITALS: BP 114/70; PULSE 86; O2SAT 95; BMI 27.1
--- NOTE | 2024-07-20 12:51 | A.OFFPC_ITS ---
Vital Signs 3 07/20/24 12:51 Height 5 ft 2 in Weight 148 lb BMI 27.1 BP 114/70 Blood Pressure Location Lt brachial Position Sitting Pulse 86 Pulse Source Pulse Oximeter Pulse Oximetry (%) 95 Oxygen Delivery Method Room Air Intake Visit Reasons: migraine, GERD Allergies ibuprofen [From Motrin] Allergy (Intermediate, Verified 07/20/24 12:52) ITCHING-VAGINAL, vaginal discomfort sumatriptan [From Imitrex] Allergy (Mild, Verified 07/20/24 12:52) RASH pregabalin Allergy (Unknown, Verified 07/20/24 12:52) swelling acetaminophen Allergy (Verified 07/20/24 12:52) causes vomiting methylprednisolone Allergy (Verified 07/20/24 12:52) vamiting Tobacco use date assessed: 07/20/24 Dental Screening Dental Screen Date: 07/20/24 Did you have a dental visit in the last 12 months?: Yes Did you have a dental problem in the last 6 months where you did not have access to dental care?: No Was dental information given to patient?: Patient has dentist HPI migraine, GERD 2 HPI0 Details The patient is a 63-year-old female presenting with routine follow-up and management of chronic conditions. She has a history of osteoporosis, currently managed with Alendronate taken weekly. The last bone density study occurred several years ago, and there is a current request for an updated evaluation. The patient has asthma, for which she occasionally uses Albuterol. She reports utilizing it irregularly, not on a weekly basis. Her hypercholesterolemia is being managed successfully with dietary adjustments, resulting in recent favorable lipid profiles. The patient has experienced a fungal infection on the toe, first noted a month prior, described as ongoing with white discoloration. She attempted self- management using creams. There is a suspected toe fracture resulting from trauma experienced one month ago. This has caused persistent pain, and she inquires about diagnostic imaging for further evaluation. She reports having had the flu recently and has been advised regarding prevalent infectious diseases such as COVID-19 and RSV, emphasizing the importance of caution during the flu season. [facility] Medical History Paronychia Snoring Breast pain, right Cervical cancer screening Colon cancer screening Osteopenia Asthma Carpal tunnel syndrome Tarsal tunnel syndrome Impaired glucose tolerance Hypercholesterolemia Hypertension Overweight (BMI 25.0-29.9) Migraine Gastroesophageal reflux disease Surgical History History of hysteroscopy History of tubal ligation Keloid scar Family History Father Hypertension Mother High cholesterol Osteoporosis Maternal Aunt Brain tumor Sister Diabetes Poor high blood pressure control Brother Diabetes Poor high blood pressure control Social History Household Members Other:: grandson Housing: Apartment Alcohol intake: never Patient Tobacco Use Status: Never used Tobacco Tobacco use type: Cigarette e-Cigarette/Vaping Use: Never Used Second Hand Smoke Exposure: No service: No Current occupational status: unemployed Sexual orientation: Straight/Heterosexual Gender identity: Female Cognitive needs: No Hearing needs: No Vision needs: No Female Reproductive History Menstrual Age of Menarche: 9 Questionnaire PHQ-9 Over the last 2 weeks, how often have you been bothered by any of the following problems? 1. Little interest or pleasure in doing things: more than half the days 2. Feeling down, depressed, or hopeless: several days 3. Trouble falling or staying asleep, or sleeping too much: several days 4. Feeling tired or having little energy: more than half the days 5. Poor appetite or overeating: several days 6. Feeling bad about yourself - or that you are a failure or have let yourself or your family down: several days 7. Trouble concentrating on things, such as reading the newspaper or watching television: several days 8. Moving or speaking so slowly that other people could have noticed. Or the opposite - being so fidgety or restless that you have been moving around a lot more than usual: several days 9. Thoughts that you would be better off or of hurting yourself in some way: not at all Total score: 10 Depression Screening Interpretation: Positive Depression Screening Done: Yes Source: Developed by Drs. Vlad Lew, Tianna Garces, To Werner and colleagues, with an educational reji from [employer]. Thrive Questionnaire Date Thrive assessed: 07/20/24 AUDIT C Alcohol Use Questionnaire (AUDIT-C) 1. How often do you have a drink containing alcohol?: Never 3. How often do you have six or more drinks on one occasion?: Never Total Score: 0 ANITA-7 AMB Questionnaire ANITA-7 Date ANITA - 7 assessed: 07/20/24 Feeling nervous, anxious, or on edge: 0 = Not at all Not being able to stop or control worryin = Not at all Worrying too much about different things: 0 = Not at all Trouble relaxin = Not at all Being so restless that it is hard to sit still: 0 = Not at all Becoming easily annoyed or irritable: 0 = Not at all Feeling afraid as if something awful might happen: 0 = Not at all Total ANITA-7 score (0-4 normal; 5-9 mild; 10-14 moderate; 15-21 severe): 0 Source: Developed by Drs. Vlad Lew, Tianna Garces, To Werner and colleagues, with an educational reji from [employer]. Physical exam (Primary Care) Vital Signs: Last Vital Signs Pulse 86 07/20/24 12:51 BP 114/70 07/20/24 12:51 Pulse Ox 95 07/20/24 12:51 Oxygen Delivery Method Room Air 07/20/24 12:51 BMI result Body Mass Index 27.1 Tobacco/Smoking Status: Tobacco use Status Tobacco use date assessed 07/20/24 07/20/24 12:54 Patient Tobacco Use Status Never used Tobacco 07/20/24 12:54 Tobacco use type Cigarette 07/20/24 12:54 e-Cigarette/Vaping Use Never Used 07/20/24 12:54 PHQ-9: PHQ-9 Score PHQ-9: Total score 10 07/20/24 13:36 Depression Screening Interpretation: Positive Thrive Assessment: Date of Thrive Assessment Date Thrive assessed 07/20/24 07/20/24 12:54 Const General: alert; No acute distress Eyes Conjunctivae: conjunctivae normal Resp Auscultation: clear to auscultation bilaterally Cardio Rate: regular rate Rhythm: regular rhythm GI Inspection: Yes normal to inspection Extrem General: Yes normal to inspection and No edema Ankle/foot/toe images: 2 1. whitish tissue interdigitally on inspection Coding Level of Care Code Est Pt Level 4 (45488) Diagnoses Colon cancer screening Z12.11 Gastroesophageal reflux disease, unspecified whether esophagitis present K21.9 Esophagitis presence: esophagitis presence not specified Intractable migraine with aura without status migrainosus G43.119 Intractability: intractable Migraine type: with aura Status migrainosus presence: without status migrainosus Hypertension I10 Hypercholesterolemia E78.00 Impaired glucose tolerance R73.02 Asthma J45.909 Osteopenia M85.80 Generalized anxiety disorder F41.1 Tinea pedis B35.3 Toe pain, right M79.674 Assessment & Plan Assessment & Plan (1) Colon cancer screening: Code(s): Z12.11 - Encounter for screening for malignant neoplasm of colon Category: Medical (2) Gastroesophageal reflux disease: Code(s): K21.9 - Gastro-esophageal reflux disease without esophagitis Category: Medical Qualifiers: Esophagitis presence: esophagitis presence not specified Qualified Code(s): K21.9 - Gastro-esophageal reflux disease without esophagitis (3) Migraine: Code(s): G43.909 - Migraine, unspecified, not intractable, without status migrainosus Category: Medical Qualifiers: Intractability: intractable Migraine type: with aura Status migrainosus presence: without status migrainosus Qualified Code(s): G43.119 - Migraine with aura, intractable, without status migrainosus (4) Hypertension: Code(s): I10 - Essential (primary) hypertension Category: Medical (5) Hypercholesterolemia: Code(s): E78.00 - Pure hypercholesterolemia, unspecified Category: Medical (6) Impaired glucose tolerance: Code(s): R73.02 - Impaired glucose tolerance (oral) Category: Medical (7) Asthma: Code(s): J45.909 - Unspecified asthma, uncomplicated Category: Medical (8) Osteopenia: Comment: May 2020 osteopenia June 2022 Code(s): M85.80 - Other specified disorders of bone density and structure, unspecified site Category: Medical (9) Generalized anxiety disorder: Comment: decline counselling Code(s): F41.1 - Generalized anxiety disorder Category: Medical (10) Tinea pedis: Code(s): B35.3 - Tinea pedis Category: Medical (11) Toe pain, right: Code(s): M79.674 - Pain in right toe(s) Category: Medical Plan - Request and perform a follow-up bone density study, as a routine evaluation for osteoporosis management. - Continue current management of asthma with Albuterol as needed. Ensure understanding of medication usage frequency and potential need for adjustment. - Monitor hypercholesterolemia; continue dietary management given successful outcomes, with continued follow-up on cholesterol levels. - Prescribe topical antifungal cream for the fungal infection on the toe, to be applied twice daily for one month. - Order an X-ray of the right toe to evaluate for possible fracture given persistent pain and trauma history. - Remind the patient of the necessity of precautions to prevent viral transmission during the current flu season, noting the risks of other circulating viruses. Orders: Orders 2 XR DEXA axial skeleton Today M81.0 - Age-related osteoporosis without current pathological fracture, M85.80 - Other specified disorders of bone density and structure, unspecified site XR foot RT 2V Today M79.674 - Pain in right toe(s) Medications: New 2 clotrimazole 1% 1 appl topical BID 45 grams 0RF 4 weeks B35.3 - Tinea pedis
== END 2024-07-20 13:49 | disposition home or self-care (01) ==
PROVIDERS: PCP Internal Medicine; Visit Provider Internal Medicine
DX: Z12.11 Encounter for screening for malignant neoplasm of colon (principal); K21.9 Gastro-esophageal reflux disease without esophagitis; G43.119 Migraine with aura, intractable, without status migrainosus; I10 Essential (primary) hypertension; E78.00 Pure hypercholesterolemia, unspecified; R73.02 Impaired glucose tolerance (oral); J45.909 Unspecified asthma, uncomplicated; M85.80 Other specified disorders of bone density and structure, unspecified site; F41.1 Generalized anxiety disorder; B35.3 Tinea pedis; M79.674 Pain in right toe(s)

== ENCOUNTER → 2024-07-20 12:46 | Outpatient (BNVA) | payer OTHER, SELFPAY | PROVIDERS: PCP Internal Medicine; Visit Provider Internal Medicine | DX: K21.9 Gastro-esophageal reflux disease without esophagitis (principal); G43.119 Migraine with aura, intractable, without status migrainosus; I10 Essential (primary) hypertension; E78.00 Pure hypercholesterolemia, unspecified; R73.02 Impaired glucose tolerance (oral); J45.909 Unspecified asthma, uncomplicated; M85.80 Other specified disorders of bone density and structure, unspecified site; F41.1 Generalized anxiety disorder; B35.3 Tinea pedis; M79.674 Pain in right toe(s) | CPT/HCPCS: 99212 ==

== ENCOUNTER 2024-09-14 08:17 | Outpatient (AMB) | payer OTHER, SELFPAY ==
--- NOTE | 2024-09-14 08:19 | A.OFFVIS_ITS ---
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 Storekeeper Helper Required: Yes Storekeeper Helper Language: Customer Acquisition Specialist Services: Storekeeper Helper Present Storekeeper Helper Name: Catherine Information Interpreted: non-clinical & clinical Tent Assembler: Tent Assembler Present (Catherine) Allergies ibuprofen [From Motrin] Allergy (Intermediate, Verified 09/14/24 08:21) ITCHING-VAGINAL, vaginal discomfort sumatriptan [From Imitrex] Allergy (Mild, Verified 09/14/24 08:21) RASH pregabalin Allergy (Unknown, Verified 09/14/24 08:21) swelling acetaminophen Allergy (Verified 09/14/24 08:21) causes vomiting methylprednisolone Allergy (Verified 09/14/24 08:21) vamiting HPI Comments Details: She is a postmenopausal woman 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 She is doing well with no principal java developer concerns. Currently sexually active. Denies any vaginal dryness or irritation. STI testing offered; she declined. Attempting to eat a healthy diet with calcium and vitamin D and stays active with exercise. Last pap smear; 2022. Last mammogram; 2023. Colonoscopy is being scheduled. Denies any family history of breast, ovarian or colon cancer. [facility] Medical History Paronychia Snoring Breast pain, right Cervical cancer screening Colon cancer screening Osteopenia Asthma Carpal tunnel syndrome Tarsal tunnel syndrome Impaired glucose tolerance Hypercholesterolemia Hypertension Overweight (BMI 25.0-29.9) Migraine Gastroesophageal reflux disease Surgical History History of hysteroscopy History of tubal ligation Keloid scar Family History Father Hypertension Mother High cholesterol Osteoporosis Maternal Aunt Brain tumor Sister Diabetes Poor high blood pressure control Brother Diabetes Poor high blood pressure control Social History Household Members Other:: grandson Housing: Apartment Alcohol intake: never Patient Tobacco Use Status: Never used Tobacco Tobacco use type: Cigarette e-Cigarette/Vaping Use: Never Used Second Hand Smoke Exposure: No service: No Current occupational status: unemployed Sexual orientation: Straight/Heterosexual Gender identity: Female Cognitive needs: No Hearing needs: No Vision needs: No Female Reproductive History Menstrual Age of Menarche: 9 control method: permanent sterilization Permanent Sterilization: BTL Total pregnancies: 3 Full term: 3 Number of Living Children: 3 Date of last pap smear: 09/05/22 (neg pap and hpv) Date of Mammogram: 09/29/23 (Birad 1) Date of last Bone Density Screenin07/25/22 Review of Systems Const All systems reviewed & are unremarkable except as noted in HPI and below Reports as per HPI Eyes Reports no additional complaints ENT Reports no additional complaints Card Reports no additional complaints Resp Reports no additional complaints GI Reports as per HPI and Reports no additional complaints Reports as per HPI Musc Reports no additional complaints Skin/Breast Reports as per HPI Neuro Reports no additional complaints Psych Reports no additional complaints Endo Reports no additional complaints Aidlson/Lymph Reports no additional complaints Aller/Immun Reports no additional complaints Physical Exam Vital Signs: Last Vital Signs BP 122/70 09/14/24 08:21 BMI result Body Mass Index 27.1 Const General: cooperative, healthy appearing, no acute distress, well developed and alert Orientation/consciousness: patient oriented x3 HEENT Head: Yes normal to inspection Eyes General: appearance normal, both eyes and all related structures Neck Neck: Yes normal visual inspection Thyroid: Thyroid normal Chest Chest palpation & inspection: normal inspection of the chest and other (no puckering, dimpling, peau de orange, retraction, discharge, masses) Breast/axilla inspection: normal inspection of the breasts Breast/axilla palpation: normal palpation of the breasts Resp Effort & Inspection: normal respiratory effort GI Inspection: Yes normal to inspection and Yes scar Palpation (GI): Soft to palpation Rectal Exam - Female: deferred General: Yes bladder normal to palpation External Female Exam: normal external appearance and normal appearance of the urethra Speculum Exam - Vagina: normal appearance of the vagina, normal palpation, normal vaginal discharge and vagina atrophic Speculum Exam - Cervix: normal appearance of the cervix and normal palpation Bimanual exam- vagina & uterus: normal bimanual exam, normal palpation, uterine size normal, bladder normal to palpation, normal palpation and non-tender Bimanual Exam- Adnexa, other: no masses Skin General skin exam: no rashes or lesions noted Rashes: no rashes Neuro General: patient oriented x3 Cognition (Neuro): normal cognition Extrem General: Yes normal to inspection Psych Attitude: cooperative Thought process: Normal thought process present Assessment & Plan Assessment & Plan (1) Encounter for well woman exam with routine gynecological exam: Code(s): Z01.419 - Encounter for gynecological examination (general) (routine) without abnormal findings Category: Medical Plan Discussed: Current recommendations for pap smears per ASCCP guidelines. Breast awareness, periodic self breast exams and yearly mammogram. Maintain a healthy lifestyle, well balanced diet including Calcium 1,200 mg and Vitamin D 600 IU daily, and routine exercise. Contact the office with any postmenopausal bleeding. Patient verbalizes understanding and agrees to the plan of care. She was given opportunity to ask questions and all questions were answered to the best of my ability. RTO in 1 year for annual principal java developer exam. This note is constructed using voice recognition software. While every effort has been made to ensure accuracy, title investigator errors may have been included. Coding Level of Care Code Est Pt Prev Care 40-64y(83680) Diagnoses Encounter for well woman exam with routine gynecological exam Z01.419
[2024-09-14 08:21] VITALS: BP 122/70; BMI 27.1
== END 2024-09-14 08:53 | disposition home or self-care (01) ==
LOC: HO.HWS 08:17
PROVIDERS: PCP Internal Medicine; Visit Provider Advanced Practice Midwife
DX: Z01.419 Encounter for gynecological examination (general) (routine) without abnormal findings (principal)
CPT/HCPCS: 99396; 99459

== ENCOUNTER → 2024-09-14 08:17 | Outpatient (BNVA) | payer OTHER, SELFPAY | PROVIDERS: PCP Internal Medicine; Visit Provider Advanced Practice Midwife | DX: Z01.419 Encounter for gynecological examination (general) (routine) without abnormal findings (principal) | CPT/HCPCS: 99396; 99459 ==

== ENCOUNTER 2024-09-30 10:44 | Outpatient (REF) | payer OTHER, SELFPAY ==
--- NOTE | ~2024-09-30 | MM_ITS ---
EXAMINATION: DXA BONE DENSITY AXIAL HISTORY: Estrogen deficiency TECHNIQUE: [employer] Dual energy absorptiometry (DEXA) of the lumbar spine, total left hip, and femoral neck was performed. COMPARISON: Comparison is made with the prior examination dated 07/25/2022. FINDINGS: The bone mineral density of the lumbar spine is 1.061 with a T-score of -1.0, and a Z-score of 0.5. This is indicative of normal bone mineral density. This represents a BMD change of -0.3% compared to the prior exam. This is not statistically significant. The bone mineral density of the left total hip is 0.898 with a T-score of -0.9, and a Z-score of 0.2. This is indicative of normal bone mineral density. This represents a BMD change of -2.3% compared to the prior exam. This is not statistically significant. The bone mineral density of the left femoral neck is 0.857 with a T-score of -1.3, and a Z-score of 0.1. This is indicative of osteopenia. This represents a BMD change of 0.8% compared to the prior exam. FRACTURE RISK: The FRAX index suggests a ten year probability of major osteoporotic fracture of 9.1%, and of hip fracture 0.4%. MM/XR DEXA axial skeleton IMPRESSION: Based on bone mineral density, and according to World Health Organization (WHO) criteria, the diagnosis is consistent with osteopenia. All bone density values are in grams per centimeter squared (g/cm2). Statistically, 68% of repeat scans fall within 1 SD (+/- 0.010 g/cm2 for AP spine L1-L4) and 1 SD (+/- 0.012 g/cm2 for femur total) FRAX is a trademark of the [employer]'s [place] [facility] Metabolic Bone Disease, a World Health Organization (WHO) Collaborating Center. Electronically signed by: Vlad El MD 09/30/2024 11:29 AM EDT
== END 2024-09-30 10:45 | disposition home or self-care (01) ==
LOC: HO.MAMMO 10:44
PROVIDERS: PCP Internal Medicine; Visit Provider Internal Medicine
DX: Z12.31 Encounter for screening mammogram for malignant neoplasm of breast (principal); M81.0 Age-related osteoporosis without current pathological fracture; M85.80 Other specified disorders of bone density and structure, unspecified site
CPT/HCPCS: 77063; 77067; 77080

== ENCOUNTER → 2024-09-30 11:00 | Outpatient (BNV) | payer OTHER, SELFPAY | PROVIDERS: PCP Internal Medicine; Visit Provider Radiology Diagnostic Radiology | DX: E28.39 Other primary ovarian failure (principal) | CPT/HCPCS: 77080 ==

== ENCOUNTER 2024-10-24 13:16 | Outpatient (AMB) | payer OTHER, SELFPAY ==
--- NOTE | 2024-10-24 13:19 | MHC.PC.OV ---
Vital Signs 10/24/24 13:22 Height 5 ft 2 in Weight 148 lb BMI 27.1 BP 114/68 Blood Pressure Location Lt brachial Position Sitting Pulse 100 Pulse Source Pulse Oximeter Pulse Oximetry (%) 98 Oxygen Delivery Method Room Air Intake Visit Reasons: Migraine Intake Note: Requesting refill on migraine medication. Allergies ibuprofen [From Motrin] Allergy (Intermediate, Verified 10/24/24 13:23) ITCHING-VAGINAL, vaginal discomfort sumatriptan [From Imitrex] Allergy (Mild, Verified 10/24/24 13:23) RASH pregabalin Allergy (Unknown, Verified 10/24/24 13:23) swelling acetaminophen Allergy (Verified 10/24/24 13:23) causes vomiting methylprednisolone Allergy (Verified 10/24/24 13:23) vamiting Tobacco use date assessed: 07/20/24 Fall risk assessment: No Falls in past year Last assessed Fall Risk: 10/24/24 Dental Screening Dental Screen Date: 07/20/24 HPI Migraine HPI Details 64-year-old overweight female with a history of GERD migraine hypertension hypercholesterolemia impaired glucose tolerance asthma generalized anxiety disorder coming in for follow-up. . [facility] Medical History Paronychia Snoring Breast pain, right Cervical cancer screening Colon cancer screening Osteopenia Asthma Carpal tunnel syndrome Tarsal tunnel syndrome Impaired glucose tolerance Hypercholesterolemia Hypertension Overweight (BMI 25.0-29.9) Migraine Gastroesophageal reflux disease Surgical History History of hysteroscopy History of tubal ligation Keloid scar Family History Father Hypertension Mother High cholesterol Osteoporosis Maternal Aunt Brain tumor Sister Diabetes Poor high blood pressure control Brother Diabetes Poor high blood pressure control Social History Household Members Other:: grandson Housing: Apartment Alcohol intake: never Patient Tobacco Use Status: Never used Tobacco Tobacco use type: Cigarette e-Cigarette/Vaping Use: Never Used Second Hand Smoke Exposure: No service: No Current occupational status: unemployed Sexual orientation: Straight/Heterosexual Gender identity: Female Cognitive needs: No Hearing needs: No Vision needs: Yes Female Reproductive History Menstrual Age of Menarche: 9 Questionnaire PHQ-9 Over the last 2 weeks, how often have you been bothered by any of the following problems? 1. Little interest or pleasure in doing things: several days Source: Developed by Drs. Vlad Lew, Tianna Garces, To Werner and colleagues, with an educational reji from [employer]. Thrive Questionnaire Date Thrive assessed: 07/20/24 ANITA-7 AMB Questionnaire ANITA-7 Date ANITA - 7 assessed: 07/20/24 Source: Developed by Drs. Vlad Lew, Tianna Garces, To Werner and colleagues, with an educational reji from [employer]. Physical exam (Primary Care) Vital Signs: Last Vital Signs Pulse 100 10/24/24 13:22 BP 114/68 10/24/24 13:22 Pulse Ox 98 10/24/24 13:22 Oxygen Delivery Method Room Air 10/24/24 13:22 BMI result Body Mass Index 27.1 Tobacco/Smoking Status: Tobacco use Status Tobacco use date assessed 07/20/24 10/24/24 13:20 Patient Tobacco Use Status Never used Tobacco 10/24/24 13:20 Tobacco use type Cigarette 10/24/24 13:20 e-Cigarette/Vaping Use Never Used 10/24/24 13:20 Thrive Assessment: Date of Thrive Assessment Date Thrive assessed 07/20/24 10/24/24 13:20 Const General: alert; No acute distress Eyes Conjunctivae: conjunctivae normal Resp Auscultation: clear to auscultation bilaterally Cardio Rate: regular rate Rhythm: regular rhythm GI Inspection: Yes normal to inspection Extrem General: Yes normal to inspection and No edema Coding Level of Care Code Est Pt Level 4 (35562) Complex EM visit Add On G2211 Diagnoses Osteopenia M85.80 Intractable migraine with aura without status migrainosus G43.119 Intractability: intractable Migraine type: with aura Status migrainosus presence: without status migrainosus Gastroesophageal reflux disease, unspecified whether esophagitis present K21.9 Esophagitis presence: esophagitis presence not specified Overweight (BMI 25.0-29.9) E66.3 Hypertension I10 Hypercholesterolemia E78.00 Impaired glucose tolerance R73.02 Asthma J45.909 Generalized anxiety disorder F41.1 Assessment & Plan Assessment & Plan (1) Osteopenia: Comment: May 2020 osteopenia June Code(s): M85.80 - Other specified disorders of bone density and structure, unspecified site Category: Medical Plan: Discussed that the bone density has no statistical change. (2) Migraine: Code(s): G43.909 - Migraine, unspecified, not intractable, without status migrainosus Category: Medical Qualifiers: Intractability: intractable Migraine type: with aura Status migrainosus presence: without status migrainosus Qualified Code(s): G43.119 - Migraine with aura, intractable, without status migrainosus Plan: Patient is advised to eat healthy, keep well hydrated, keep active and have adequate sleep. Continue with present medication (3) Gastroesophageal reflux disease: Code(s): K21.9 - Gastro-esophageal reflux disease without esophagitis Category: Medical Qualifiers: Esophagitis presence: esophagitis presence not specified Qualified Code(s): K21.9 - Gastro-esophageal reflux disease without esophagitis Plan: Avoid the foods that causes that usually spicy foods, tomato products, juices, coffee, soda and foods that your sensitive to. After eating do not lie down, allow 3-4 hours before in lie down. And keep the head of bed above 30 degrees to avoid the acid from going up. (4) Overweight (BMI 25.0-29.9): Code(s): E66.3 - Overweight Category: Medical Plan: Diet and exercise (5) Hypertension: Code(s): I10 - Essential (primary) hypertension Category: Medical Plan: Continue with blood pressure medication. Decrease salt intake and exercise on hydrochlorothiazide 25 mg once a day (6) Hypercholesterolemia: Code(s): E78.00 - Pure hypercholesterolemia, unspecified Category: Medical Plan: Avoid fried foods, chicken skin, eggs, butter margarine, pastries and meat. Be it pork or beef they have a lot of cholesterol diet controlled (7) Impaired glucose tolerance: Code(s): R73.02 - Impaired glucose tolerance (oral) Category: Medical Plan: Decrease the amount of carbohydrate intake, pasta, bread, rice and potatoes are all sugar and that is aside from all the sweet stuff, remember that fruits are good but they are Sweet also. (8) Asthma: Code(s): J45.909 - Unspecified asthma, uncomplicated Category: Medical Plan: Patient on albuterol as needed (9) Generalized anxiety disorder: Comment: decline counselling Code(s): F41.1 - Generalized anxiety disorder Category: Medical Plan: Continue with present medication. Orders: Orders Comprehensive Met. Panel 6 Weeks E78.00 - Pure hypercholesterolemia, unspecified Lipid Panel 6 Weeks E78.00 - Pure hypercholesterolemia, unspecified Vitamin D 25-OH Total 6 Weeks E78.00 - Pure hypercholesterolemia, unspecified Complete Blood Count Auto Diff 6 Weeks E78.00 - Pure hypercholesterolemia, unspecified Free T4 (Free Thyroxine) 6 Weeks E78.00 - Pure hypercholesterolemia, unspecified Thyroid Stimulating Hormone 6 Weeks E78.00 - Pure hypercholesterolemia, unspecified Vitamin B12 and Folate 6 Weeks E78.00 - Pure hypercholesterolemia, unspecified UA CC w/rflx Micro + Cult 6 Weeks E78.00 - Pure hypercholesterolemia, unspecified, R30.0 - Dysuria Medications: Refilled [id number]-RXH-caff [id number] mg (Ascomp with Codeine) 1 cap PO Q6H PRN 20 caps 0RF headache 30 days R73.02 - Impaired glucose tolerance (oral)
[2024-10-24 13:22] VITALS: BP 114/68; PULSE 100; O2SAT 98; BMI 27.1
== END 2024-10-24 15:06 | disposition home or self-care (01) ==
LOC: HO.HMCH 13:16
PROVIDERS: PCP Internal Medicine; Visit Provider Internal Medicine
DX: M85.80 Other specified disorders of bone density and structure, unspecified site (principal); G43.119 Migraine with aura, intractable, without status migrainosus; K21.9 Gastro-esophageal reflux disease without esophagitis; E66.3 Overweight; I10 Essential (primary) hypertension; E78.00 Pure hypercholesterolemia, unspecified; R73.02 Impaired glucose tolerance (oral); J45.909 Unspecified asthma, uncomplicated; F41.1 Generalized anxiety disorder

== ENCOUNTER → 2024-10-24 13:16 | Outpatient (BNVA) | payer OTHER, SELFPAY | PROVIDERS: PCP Internal Medicine; Visit Provider Internal Medicine | DX: G43.119 Migraine with aura, intractable, without status migrainosus (principal); M85.80 Other specified disorders of bone density and structure, unspecified site; K21.9 Gastro-esophageal reflux disease without esophagitis; E66.3 Overweight; Z68.27 Body mass index [BMI] 27.0-27.9, adult; I10 Essential (primary) hypertension; E78.00 Pure hypercholesterolemia, unspecified; R73.02 Impaired glucose tolerance (oral); J45.909 Unspecified asthma, uncomplicated; F41.1 Generalized anxiety disorder; Z79.899 Other long term (current) drug therapy | CPT/HCPCS: 99212 ==

== ENCOUNTER 2024-11-15 11:51 | Day surgery (SDC) | payer OTHER, SELFPAY ==
[2024-11-11 11:17] VITALS: BMI 27.1
--- NOTE | 2024-11-14 10:38 | HO.ANESPROP2 ---
Documented by User: Shruthi Ledezma NP 11/14/24 10:39 HPI - Anesthesia Eval Consult details Narrative: 64yo F for Upper Endoscopy and Colonoscopy PMFSH Active Problems Active Problems: All Active Problems Encounter for well woman exam with routine gynecological exam (Acute) Toe pain, right (Acute) Tinea pedis (Acute) Kidney stone on left side (Acute) Colon cancer screening (Acute) Annual physical exam (Acute) Hematuria (Acute) Generalized anxiety disorder (Acute) Sleep disorder, unspecified (Acute) Sleep apnea (Acute) Osteopenia (Acute) Asthma (Acute) Impaired glucose tolerance (Acute) Hypercholesterolemia (Acute) Hypertension (Acute) Overweight (BMI 25.0-29.9) (Acute) Migraine (Acute) Gastroesophageal reflux disease (Acute) Past Medical History Medical History Sleep apnea Breast pain, right Cervical cancer screening Colon cancer screening Paronychia Snoring Osteopenia Asthma Carpal tunnel syndrome Tarsal tunnel syndrome Impaired glucose tolerance Hypercholesterolemia Hypertension Overweight (BMI 25.0-29.9) Migraine Gastroesophageal reflux disease Family History Family History Father Hypertension Mother High cholesterol Osteoporosis Maternal Aunt Brain tumor Sister Diabetes Poor high blood pressure control Brother Diabetes Poor high blood pressure control Surgical History Surgical History History of hysteroscopy History of tubal ligation Keloid scar Social History Social History Household Members Other:: grandson Housing: Apartment Alcohol intake: never Patient Tobacco Use Status: Never used Tobacco Tobacco use type: Cigarette e-Cigarette/Vaping Use: Never Used Second Hand Smoke Exposure: No Use of substances other than those prescribed or required for medical reasons: No Are you DNR?: No Advance Directives: No Advance Directives Information Provided: Yes Patient : No : No Poor oral hygiene: No service: No Current occupational status: unemployed Sexual orientation: Straight/Heterosexual Gender identity: Female Cognitive needs: No Hearing needs: No Vision needs: Yes Meds Allergies Allergy/AdvReac Type Severity Reaction Status Date / Time ibuprofen [From Motrin] Allergy Intermediate ITCHING-VAGINAL, Verified 10/24/24 13:23 vaginal discomfort sumatriptan [From Imitrex] Allergy Mild RASH Verified 10/24/24 13:23 pregabalin Allergy Unknown swelling Verified 10/24/24 13:23 methylprednisolone Allergy Vomiting Verified 11/15/24 12:05 Home Medications ?Medication ?Instructions ?Recorded ?Confirmed ?Last Taken ?Type cetirizine 10 mg capsule (Zyrtec) 10 mg PO DAILY 04/12/20 03/30/24 Unknown History Exam Height,Weight and Vital Signs: Height 5 ft 2 in Weight 67.132 kg Assessment and Plan Assessment Anesthesia Assessment: Chart Reviewed Documented by User: Crystal Thomas MD 11/15/24 13:33 PMFSH Past Medical History Medical History Sleep apnea Breast pain, right Cervical cancer screening Colon cancer screening Paronychia Snoring Osteopenia Asthma Carpal tunnel syndrome Tarsal tunnel syndrome Impaired glucose tolerance Hypercholesterolemia Hypertension Overweight (BMI 25.0-29.9) Migraine Gastroesophageal reflux disease Family History Family History Father Hypertension Mother High cholesterol Osteoporosis Maternal Aunt Brain tumor Sister Diabetes Poor high blood pressure control Brother Diabetes Poor high blood pressure control Family history of problems with anesthesia: No Surgical History Surgical History History of hysteroscopy History of tubal ligation Keloid scar History of Problems with Anesthesia: No Social History Social History Household Members Other:: grandson Housing: Apartment Alcohol intake: never Patient Tobacco Use Status: Never used Tobacco Tobacco use type: Cigarette e-Cigarette/Vaping Use: Never Used Second Hand Smoke Exposure: No Use of substances other than those prescribed or required for medical reasons: No Are you DNR?: No Advance Directives: No Advance Directives Information Provided: Yes Patient : No : No Poor oral hygiene: No service: No Current occupational status: unemployed Sexual orientation: Straight/Heterosexual Gender identity: Female Cognitive needs: No Hearing needs: No Vision needs: Yes Meds Allergies Allergy/AdvReac Type Severity Reaction Status Date / Time ibuprofen [From Motrin] Allergy Intermediate ITCHING-VAGINAL, Verified 10/24/24 13:23 vaginal discomfort sumatriptan [From Imitrex] Allergy Mild RASH Verified 10/24/24 13:23 pregabalin Allergy Unknown swelling Verified 10/24/24 13:23 methylprednisolone Allergy Vomiting Verified 11/15/24 12:05 Home Medications ?Medication ?Instructions ?Recorded ?Confirmed ?Last Taken ?Type cetirizine 10 mg capsule (Zyrtec) 10 mg PO DAILY 04/12/20 03/30/24 Unknown History Exam Airway Mallampati Class: II TM Dist: >3cm Neck ROM: Full Heart: rrr Lungs: cta Assessment and Plan Assessment Anesthesia Assessment: Anesthesia Plan Discussed Final Anesthetic Review Family History of Problems with Anesthesia: No History of Problems with Anesthesia: No NPO: Yes ASA Class: II Final Preanesthetic Review: No Changes in Pt Med Stat, Meds/Allgs Chart Reviewed, Consent Obtained/Reviewed and Anes Risks/Benef Reviewed Patient Risk: Low Procedure Risk: Low Anesthetic Plan Anesthetic Plan: MAC: Disposition: Standard PACU
[2024-11-15 12:00] VITALS: BMI 27.0
[2024-11-15 12:24] VITALS: BP 141/81; PULSE 104; RESP 16; TEMP 36.6; O2SAT 97
[2024-11-15] MEDS: Lactated Ringers 1,000 ML 100 ML IVCONT (12:33)
--- NOTE | 2024-11-15 13:28 | MHC.SHP ---
Pre-Procedural Eval Section A - 24 Hr Update-Section A only Date of Service: 11/15/24 Section B - Complete if H&P > 30 days Chief Complaint: GERD, screening Details of Present Illness: Paronychia Snoring Breast pain, right Cervical cancer screening Colon cancer screening Osteopenia Asthma Carpal tunnel syndrome Tarsal tunnel syndrome Impaired glucose tolerance Hypercholesterolemia Hypertension Overweight (BMI 25.0-29.9) Migraine Gastroesophageal reflux disease Surgical History History of hysteroscopy History of tubal ligation Keloid scar Present Medications: see Short Stay Collaborative assessment Allergies: Allergies Allergy/AdvReac Type Severity Reaction Status Date / Time ibuprofen [From Motrin] Allergy Intermediate ITCHING-VAGINAL, Verified 10/24/24 13:23 vaginal discomfort sumatriptan [From Imitrex] Allergy Mild RASH Verified 10/24/24 13:23 pregabalin Allergy Unknown swelling Verified 10/24/24 13:23 methylprednisolone Allergy Vomiting Verified 11/15/24 12:05 Review of Systems Review of Systems Comment: Ten point ROS negative Exam Exam Comment: Gen appear: No acute distress HEENT: no icterus Chest: No overt resp distress Abd: soft, nontender, nondistended Psych: Stable affect, answering questions appropriately Neuro: A/Ox3 noted to move all extremities spontaneously Ext: no peripheral edema Plan Diagnosis/Plan: Unchanged I have reviewed the history and physical and performed a pertinent physical examination on my patient. No changes have occurred unless specified. Time Spent With Patient Time: Total time managing care of this patient today ____ minutes.
--- NOTE | 2024-11-15 14:26 | P.OPN-COLO_ITS ---
Colonoscopy Operative Note Operative Note Date of Service: 11/15/24 Narrative: Procedure: Upper endoscopy and colonoscopy Indication: GERD, screening Endoscopist: Annemarie Oconnor MD Anesthesia Provider: Newton George CRNA Anesthesia type: MAC Instrument: [id number] and [id number] EGD Procedure:?? The procedure, indications, preparation and potential complications were reviewed with the patient, who indicated understanding and gave written informed consent to proceed. The endoscope was introduced through the mouth, and advanced to the 2nd part of the duodenum. The mucosa was carefully examined on slow withdrawal of the endoscope. The patient tolerated the procedure well. There were no immediate complications.? EGD Findings:? * Esophagus:? Normal esophageal mucosa was noted. The Z-line was at 40 cm and irregular up to 39 cm. Cold forceps biopsies were taken from GE junction to rule out myers's esophagus. This will also be sent for tissue cypher is myers's confirmed. There was a small hiatal hernia with the diaphragmatic pinch at 42 cm. * Stomach:?Erythema and erosions in the antrum. Mild atrophy in the antrum with some redness along greater curvature suspicious for H Pylori related GIM. Retroflexion was performed in the cardia that showed Hill grade III hiatal hernia. Cold forceps biopsies were taken from the antrum and body of the stomach. * Duodenum:? Normal duodenal mucosa. Colonoscopy Procedure:? The patient was then turned for the colonoscopy. A digital rectal exam was performed which was abnormal for external hemorrhoids.? A distal attachment cap was affixed to the tip of the scope and the colonoscope was then inserted through the anus and advanced through the colon and advanced to the cecum at 80 cm and terminal ileum.? Appendiceal orifice and ileocecal valve were identified. Mucosa was carefully examined under high definition white light as the instrument was slowly withdrawn in a retrograde panoramic fashion. Retroflexion was performed in rectum. The procedure was not difficult. The quality of the prep was BBPS: 3+2+3 = adequate Withdrawal time 7 minutes Limitations: No limitations Findings: Mucosa: Normal colon and terminal ileum mucosa. Protruding lesions: * Large internal hemorrhoids without stigmata of recent bleeding. Excavated lesions: * [id number] diverticulosis of left sided colon Impression: 1. Irregular Z line (biopsy, tissue cypher) 2. Hiatal hernia 3. Gastritis (biopsy) 4. Normal duodenum 5. Normal colon and terminal ileum mucosa 6. Diverticulosis 7. Internal and external hemorrhoids Recommendations:?? * Follow-up path results * Cont omeprazole * Avoid NSAIDs * H Pylori treatment if biopsies + * Repeat colonoscopy for CRC screening in 10 years.
[2024-11-15 14:30] VITALS: BP 98/64; PULSE 86; RESP 12; TEMP 36.4; O2SAT 96
[2024-11-15 14:45] VITALS: BP 123/75; PULSE 89; RESP 18; TEMP 36.9; O2SAT 97
== END 2024-11-15 15:06 | disposition home or self-care (01) ==
PROVIDERS: PCP Internal Medicine; Visit Provider Internal Medicine
PROC: (CPT 45378; principal; 2024-11-15 13:20)
DX: Z12.11 Encounter for screening for malignant neoplasm of colon (principal); K57.30 Diverticulosis of large intestine without perforation or abscess without bleeding; K64.8 Other hemorrhoids; K22.9 Disease of esophagus, unspecified; K44.9 Diaphragmatic hernia without obstruction or gangrene; K29.60 Other gastritis without bleeding; K31.A11 Gastric intestinal metaplasia without dysplasia, involving the antrum; K21.9 Gastro-esophageal reflux disease without esophagitis; I10 Essential (primary) hypertension; E78.00 Pure hypercholesterolemia, unspecified; J45.909 Unspecified asthma, uncomplicated; G47.30 Sleep apnea, unspecified; Z79.899 Other long term (current) drug therapy
CPT/HCPCS: 45378; 43239; 88305; 88313; 88342; J2003; J2704

== ENCOUNTER → 2024-11-15 11:51 | Outpatient (BNV) | payer OTHER, SELFPAY | PROVIDERS: PCP Internal Medicine; Visit Provider Internal Medicine | DX: K21.9 Gastro-esophageal reflux disease without esophagitis (principal); K44.9 Diaphragmatic hernia without obstruction or gangrene; K22.89 Other specified disease of esophagus; K29.70 Gastritis, unspecified, without bleeding; Z12.11 Encounter for screening for malignant neoplasm of colon; K64.8 Other hemorrhoids; K57.90 Diverticulosis of intestine, part unspecified, without perforation or abscess without bleeding | CPT/HCPCS: 43239; 45378 ==

== ENCOUNTER 2025-04-05 12:10 | Outpatient (AMB) | payer OTHER, SELFPAY ==
[2025-04-05 12:29] VITALS: BP 130/70; PULSE 87; TEMP 36.2; O2SAT 97; BMI 27.8
--- NOTE | 2025-04-05 12:29 | MHC.PC.OV ---
Vital Signs 04/05/25 12:29 Height 5 ft 2 in Weight 152 lb 2 oz BMI 27.8 BP 130/70 Blood Pressure Location Lt brachial Position Sitting Pulse 87 Pulse Source Pulse Oximeter Temp 97.1 F Temp Source Temporal Artery Scan Pulse Oximetry (%) 97 Oxygen Delivery Method Room Air Intake Visit Reasons: Annual exam Accompanied by: Spouse Allergies ibuprofen (From Motrin) Allergy (Intermediate, Verified 04/05/25 12:32) ITCHING-VAGINAL, vaginal discomfort sumatriptan (From Imitrex) Allergy (Mild, Verified 04/05/25 12:32) RASH pregabalin Allergy (Unknown, Verified 04/05/25 12:32) swelling methylprednisolone Allergy (Verified 04/05/25 12:32) Vomiting Medication List - Last Reconciled 04/05/25 by Coral Espino MD albuterol sulfate 90 mcg/actuation (Ventolin HFA) 2 puffs inhalation Q6H PRN alendronate 70 mg PO QWEEK amitriptyline 10 mg PO BEDTIME cetirizine (Zyrtec) 10 mg PO DAILY cholecalciferol (vitamin D3) 50 mcg PO DAILY 90 days [id number] mg (Ascomp with Codeine) 1 cap PO Q6H PRN 30 days hydrochlorothiazide 25 mg PO DAILY lorazepam 1 mg PO BEDTIME PRN 90 days omeprazole 40 mg PO DAILY sennosides (Natural Senna Laxative) 17.2 mg (2 x 8.6 mg) PO BEDTIME Tobacco use date assessed: 04/05/25 Fall risk assessment: No Falls in past year Last assessed Fall Risk: 04/05/25 Dental Screening Dental Screen Date: 04/05/25 Did you have a dental visit in the last 12 months?: Yes Did you have a dental problem in the last 6 months where you did not have access to dental care?: No Was dental information given to patient?: Patient has dentist [facility] Medical History Sleep apnea Breast pain, right Cervical cancer screening Colon cancer screening Paronychia Snoring Osteopenia Asthma Carpal tunnel syndrome Tarsal tunnel syndrome Impaired glucose tolerance Hypercholesterolemia Hypertension Overweight (BMI 25.0-29.9) Migraine Gastroesophageal reflux disease Surgical History History of hysteroscopy History of tubal ligation Keloid scar Family History Father Hypertension Mother High cholesterol Osteoporosis Maternal Aunt Brain tumor Sister Diabetes Poor high blood pressure control Brother Diabetes Poor high blood pressure control Social History Household Members Other:: grandson Housing: Apartment Alcohol intake: never Patient Tobacco Use Status: Never used Tobacco Tobacco use type: Cigarette e-Cigarette/Vaping Use: Never Used Second Hand Smoke Exposure: No service: No Current occupational status: unemployed Sexual orientation: Straight/Heterosexual Gender identity: Female Cognitive needs: No Hearing needs: No Vision needs: Yes Female Reproductive History Menstrual Age of Menarche: 9 Questionnaire PHQ-9 Over the last 2 weeks, how often have you been bothered by any of the following problems? 1. Little interest or pleasure in doing things: more than half the days 2. Feeling down, depressed, or hopeless: not at all 3. Trouble falling or staying asleep, or sleeping too much: several days 4. Feeling tired or having little energy: not at all 5. Poor appetite or overeating: not at all 6. Feeling bad about yourself - or that you are a failure or have let yourself or your family down: not at all 7. Trouble concentrating on things, such as reading the newspaper or watching television: several days 8. Moving or speaking so slowly that other people could have noticed. Or the opposite - being so fidgety or restless that you have been moving around a lot more than usual: several days 9. Thoughts that you would be better off or of hurting yourself in some way: not at all Total score: 5 Depression Screening Interpretation: Positive Depression Screening Done: Yes Source: Developed by Drs. Vlad Lew, Tianna Garces, To Werner and colleagues, with an educational reji from [employer]. Thrive Questionnaire Date Thrive assessed: 07/20/24 I am a: Patient What is your living situation today?: I have a steady place to live Within the past 12 months, did the food you bought not last and you didn't have the money to get more?: Sometimes True Within the past 12 months, did you worry whether your food would run out before you got money to buy more?: Often true Do you have trouble paying for medicines?: No Do you have trouble getting transportation to medical appointments?: No Do you have trouble paying your heating and electricity bill?: No Do you have trouble taking care of your child, family member or friend?: Yes Do you have trouble with day-to-day activities such as bathing, preparing meals, shopping, managing finances, etc.?: Yes Are you currently unemployed and looking for a job?: No Are you interested in more education?: No THRIVE Score: 2 AUDIT C Alcohol Use Questionnaire (AUDIT-C) 1. How often do you have a drink containing alcohol?: Never 3. How often do you have six or more drinks on one occasion?: Never Total Score: 0 ANITA-7 AMB Questionnaire ANITA-7 Date ANITA - 7 assessed: 07/20/24 Feeling nervous, anxious, or on edge: 0 = Not at all Not being able to stop or control worryin = Not at all Worrying too much about different things: 0 = Not at all Trouble relaxin = Not at all Being so restless that it is hard to sit still: 0 = Not at all Becoming easily annoyed or irritable: 0 = Not at all Feeling afraid as if something awful might happen: 0 = Not at all Total ANITA-7 score (0-4 normal; 5-9 mild; 10-14 moderate; 15-21 severe): 0 Source: Developed by Drs. Vlad Lew, Tianna Garces, To Werner and colleagues, with an educational reji from [employer]. Review of Systems Const Denies poor appetite and Denies weakness Eyes Denies no additional complaints ENT Reports Normal hearing present, Denies dizziness, Denies nasal congestion, Denies tinnitus and Denies sore throat Card Denies chest pain, Denies syncope, Denies rapid heart rate and Denies dyspnea Resp Denies cough and Denies dyspnea GI Denies change in stool character, Reports constipation, Denies diarrhea, Denies nausea and Denies vomiting Denies urinary frequency, Denies difficulty voiding and Denies dysuria Neuro Reports Normal hearing present, Denies confusion, Denies dizziness, Denies syncope and Denies weakness Psych Denies confusion Physical exam (Primary Care) Vital Signs: Last Vital Signs Temp 97.1 F 04/05/25 12:29 Pulse 87 04/05/25 12:29 BP 130/70 04/05/25 12:29 Pulse Ox 97 04/05/25 12:29 Oxygen Delivery Method Room Air 04/05/25 12:29 BMI result Body Mass Index 27.8 Tobacco/Smoking Status: Tobacco use Status Tobacco use date assessed 04/05/25 04/05/25 12:34 Patient Tobacco Use Status Never used Tobacco 04/05/25 12:33 Tobacco use type Cigarette 04/05/25 12:33 e-Cigarette/Vaping Use Never Used 04/05/25 12:33 PHQ-9: PHQ-9 Score PHQ-9: Total score 5 04/05/25 13:00 Depression Screening Interpretation: Positive Thrive Assessment: Date of Thrive Assessment Date Thrive assessed 07/20/24 04/05/25 12:33 Const General: No confusion Orientation/consciousness: No confusion HENMT Head: Yes normocephalic Ears: external ears normal and TM's normal bilaterally Face and sinus: Yes normal facial exam Mouth: moist mucous membranes Throat: Yes tonsils normal Eyes Conjunctivae: conjunctivae normal Pupils: Equal, round and reactive pupils present and Pupil accommodation reflex normal Direct Ophthalmoscopy: normal light reflex Neck Neck: No lymphadenopathy Thyroid: Thyroid normal Chest Chest palpation & inspection: normal inspection of the chest Resp Effort & Inspection: normal respiratory effort and no audible wheezes Auscultation: clear to auscultation bilaterally, no crackles, no wheezes and lung sounds not diminished Cardio Rate: regular rate Rhythm: regular rhythm Peripheral pulses: radial pulses present and dorsalis pedis present GI Palpation (GI): no masses Auscultation: normal bowel sounds and normoactive bowel sounds Rectal Exam - Female: deferred Skin General skin exam: no rashes or lesions noted Rashes: no rashes Neuro General: No confusion Cranial nerves: Yes Equal, round and reactive pupils present and Yes Normal hearing present Cognition (Neuro): normal cognition Gait exam (Neuro): Normal gait present Motor exam (neuro): 5/5 motor strength present throughout Deep tendon reflexes (DTR's): Right brachioradialis reflex intensity grade: 2+, Left brachioradialis reflex intensity grade: 2+, Right patellar reflex intensity grade: 2+ and Left patellar reflex intensity grade: 2+ Extrem General: No edema Office Procedures Flu Questionnaire Does the patient have a severe egg allergy?: No Does the patient have severe life threatening allergies?: No Does the patient have a fever or illness today?: No Has the patient ever had Guillain-Prescott Syndrome?: No Has the patient ever had any past reaction to a flu shot?: No Immunizations Fluarix [id number] (PF) 45 mcg (15 mcg x 3)/0.5 mL IM syringe Performing Provider: Coral Espino MD [facility] Administered by: Jeanine So CMA on 04/05/25 13:00 Dose Route Admin Location Dispensed Lot Number Expiration Date [facility] Meat Blender 0.5 mL IM Left Deltoid 0.5 mL [id number] 12/26/25 [id number] [employer] VIS Given Date VIS Provided VIS Publication Date 04/05/25 Single Vaccine 24 Eligibility Eligibility Date Funding Source Not [facility] Eligible 04/05/25 Private Coding Level of Care Code Est Pt Prev Care 40-64y(18887) Diagnoses Annual physical exam Z00.00 Hypertension I10 Hypercholesterolemia E78.00 Impaired glucose tolerance R73.02 Overweight (BMI 25.0-29.9) E66.3 Gastroesophageal reflux disease, unspecified whether esophagitis present K21.9 Esophagitis presence: esophagitis presence not specified Generalized anxiety disorder F41.1 Intractable migraine with aura without status migrainosus G43.119 Intractability: intractable Migraine type: with aura Status migrainosus presence: without status migrainosus Assessment & Plan Assessment & Plan (1) Annual physical exam: Code(s): Z00.00 - Encounter for general adult medical examination without abnormal findings Category: Medical (2) Hypertension: Code(s): I10 - Essential (primary) hypertension Category: Medical Plan: Continue with blood pressure medication. Decrease salt intake and exercise patient is taking hydrochlorothiazide 25 mg once a day (3) Hypercholesterolemia: Code(s): E78.00 - Pure hypercholesterolemia, unspecified Category: Medical Plan: Avoid fried foods, chicken skin, eggs, butter margarine, pastries and meat. Be it pork or beef they have a lot of cholesterol (4) Impaired glucose tolerance: Code(s): R73.02 - Impaired glucose tolerance (oral) Category: Medical Plan: Decrease the amount of carbohydrate intake, pasta, bread, rice and potatoes are all sugar and that is aside from all the sweet stuff, remember that fruits are good but they are Sweet also. (5) Overweight (BMI 25.0-29.9): Code(s): E66.3 - Overweight Category: Medical Plan: Diet and exercise (6) Gastroesophageal reflux disease: Code(s): K21.9 - Gastro-esophageal reflux disease without esophagitis Category: Medical Qualifiers: Esophagitis presence: esophagitis presence not specified Qualified Code(s): K21.9 - Gastro-esophageal reflux disease without esophagitis Plan: Avoid the foods that causes that usually spicy foods, tomato products, juices, coffee, soda and foods that your sensitive to. After eating do not lie down, allow 3-4 hours before in lie down. And keep the head of bed above 30 degrees to avoid the acid from going up. (7) Generalized anxiety disorder: Comment: decline counselling Code(s): F41.1 - Generalized anxiety disorder Category: Medical Plan: Continue with present medication on lorazepam amitriptyline (8) Migraine: Code(s): G43.909 - Migraine, unspecified, not intractable, without status migrainosus Category: Medical Qualifiers: Intractability: intractable Migraine type: with aura Status migrainosus presence: without status migrainosus Qualified Code(s): G43.119 - Migraine with aura, intractable, without status migrainosus Plan: Patient is advised to eat healthy, keep well hydrated, keep active and have adequate sleep. Plan History of Present Illness The patient is a 64-year-old female presenting for a physical exam and management of chronic conditions. The patient has a history of gastroesophageal reflux disease (GERD), which has been managed with omeprazole. She reports no new symptoms or exacerbations related to GERD since her last visit. The patient experiences migraines, for which she takes medication as needed. She has not reported any recent severe episodes or changes in her migraine pattern. Hypertension is managed with hydrochlorothiazide 25 mg daily, and her blood pressure readings have been stable. She denies any symptoms such as dizziness or headaches related to hypertension. The patient has hypercholesterolemia, with a recent LDL cholesterol level of 115 mg/dL. She is advised to continue with dietary modifications and exercise. Asthma is controlled with albuterol as needed, which she uses approximately two to three times a week. She reports no recent exacerbations or hospitalizations due to asthma. The patient has osteopenia, with her last bone density test conducted in September 2024. She is on alendronate once a week for bone health. She has a history of nephrolithiasis on the left side, with no recent episodes reported. The patient underwent a colonoscopy and EGD, which showed reactive changes with intestinal metaplasia and minimal chronic inactive gastritis, negative for H. pylori. These findings are being monitored, and no new symptoms have been reported. Health Maintenance - Vaccinations: Flu shot recommended, shingles vaccine discussed - Screenings: Colonoscopy, mammogram, bone density, and eye test up to date - Lifestyle: Advised to maintain a healthy diet, regular exercise, and adequate hydration Social History - Substance Use: Denies alcohol and tobacco use - Exercise: Engages in regular physical activity Review of Systems - General: Denies fever, weight loss, or fatigue - Cardiovascular: Denies chest pain, palpitations, or syncope - Respiratory: Reports dyspnea on exertion, denies cough or wheezing - Gastrointestinal: Denies nausea, vomiting, or dysphagia - Neurological: Reports migraines, denies dizziness or seizures - Musculoskeletal: Denies joint pain or swelling Physical Exam General: Cooperative, healthy appearing, comfortable, no acute distress and well developed Orientation: Patient oriented x3 Limitations: No limitations Head: Normal to inspection Ears: Hearing grossly normal bilaterally, sometimes experiences ear pain Nose: Normal external nose present Face and sinus: Normal facial exam Eyes: Appearance normal, both eyes and all related structures, no vision problems Neck: Normal visual inspection and Yes full ROM Respiratory: Normal respiratory effort and able to speak in complete sentences. Clear to auscultation bilaterally, sometimes short of breath when climbing stairs Cardiovascular: Regular rate and rhythm. Normal S1 and S2 GI: Normal to inspection. Soft to palpation and nontender Skin: No rashes or lesions noted Neuro: Patient oriented x3 Extremities: Normal to inspection, hereditary bow legs noted Results - Labs: Normal blood count, electrolytes, renal function, blood sugar, liver function, B12, vitamin D, folic acid, thyroid - Tests: Colonoscopy and EGD showed reactive changes with intestinal metaplasia, minimal chronic inactive gastritis, negative for H. pylori Plan Patient was informed and verbally consented to the use of an ambient scribe for clinic note documentation during this visit. 1. Gastroesophageal Reflux Disease (Gerd) The patient will continue with omeprazole for GERD management. Dietary modifications and lifestyle changes are recommended to prevent exacerbations. 2. Hypertension Hypertension is managed with hydrochlorothiazide 25 mg daily. Blood pressure monitoring will continue to ensure stability. 3. Hypercholesterolemia The patient is advised to maintain dietary modifications and regular exercise to manage cholesterol levels. Follow-up lipid panel will be scheduled to monitor progress. 4. Asthma Asthma is controlled with albuterol as needed, approximately two to three times a week. A refill for the inhaler will be provided as necessary. 5. Osteopenia The patient is on alendronate once a week for bone health. Regular follow-up for bone density assessment is recommended. 6. Nephrolithiasis The patient has a history of nephrolithiasis, with no recent episodes reported. Hydration and dietary modifications are advised to prevent recurrence. 7. Preventative Care The patient is up to date with colonoscopy, mammogram, bone density, and eye test. Flu shot is recommended, and shingles vaccine was discussed. Discussion Notes During the visit, we discussed the management of GERD with omeprazole and the importance of dietary modifications. We reviewed the patient's hypertension management with hydrochlorothiazide and emphasized regular blood pressure monitoring. The patient was advised to continue lifestyle changes for cholesterol management and to schedule a follow-up lipid panel. Asthma management was reviewed, and a refill for the inhaler was arranged. We discussed the patient's osteopenia treatment with alendronate and the need for regular bone density assessments. Preventative care measures, including vaccinations and screenings, were reviewed and updated. Patient Instructions - Continue taking omeprazole as prescribed for GERD. - Maintain a healthy diet and exercise regularly to manage cholesterol and overall health. - Use albuterol inhaler as needed for asthma symptoms. - Take hydrochlorothiazide daily for blood pressure control. - Schedule follow-up appointments for blood pressure and cholesterol monitoring. - Stay up to date with vaccinations, including flu and shingles vaccines. - Ensure regular screenings, including colonoscopy and mammogram, are up to date. Orders: Orders Thyroid Stimulating Hormone 3 Months E78.00 - Pure hypercholesterolemia, unspecified Hemoglobin A1c 3 Months E78.00 - Pure hypercholesterolemia, unspecified Influenza [id number] Immunization Today Z23 - Encounter for immunization Complete Blood Count Auto Diff 3 Months E78.00 - Pure hypercholesterolemia, unspecified Comprehensive Met. Panel 3 Months E78.00 - Pure hypercholesterolemia, unspecified Free T4 (Free Thyroxine) 3 Months E78.00 - Pure hypercholesterolemia, unspecified Lipid Panel 3 Months E78.00 - Pure hypercholesterolemia, unspecified Vitamin B12 and Folate 3 Months E78.00 - Pure hypercholesterolemia, unspecified Vitamin D 25-OH Total 3 Months E78.00 - Pure hypercholesterolemia, unspecified Magnesium 3 Months E78.00 - Pure hypercholesterolemia, unspecified UA CC w/rflx Micro + Cult 3 Months E78.00 - Pure hypercholesterolemia, unspecified, R30.0 - Dysuria Medications: Refilled albuterol sulfate 90 mcg/actuation (Ventolin HFA) 2 puffs inhalation Q6H PRN 8.5 grams 2RF for wheezing R73.02 - Impaired glucose tolerance (oral)
== END 2025-04-05 13:02 | disposition home or self-care (01) ==
LOC: HO.HMCH 12:11
PROVIDERS: PCP Internal Medicine; Visit Provider Internal Medicine
DX: Z00.00 Encounter for general adult medical examination without abnormal findings (principal); I10 Essential (primary) hypertension; E78.00 Pure hypercholesterolemia, unspecified; R73.02 Impaired glucose tolerance (oral); E66.3 Overweight; K21.9 Gastro-esophageal reflux disease without esophagitis; F41.1 Generalized anxiety disorder; G43.119 Migraine with aura, intractable, without status migrainosus; Z23 Encounter for immunization

== ENCOUNTER → 2025-04-05 12:10 | Outpatient (BNVA) | payer OTHER, SELFPAY | PROVIDERS: PCP Internal Medicine; Visit Provider Internal Medicine | DX: Z00.00 Encounter for general adult medical examination without abnormal findings (principal); I10 Essential (primary) hypertension; E78.00 Pure hypercholesterolemia, unspecified; R73.02 Impaired glucose tolerance (oral); E66.3 Overweight; K21.9 Gastro-esophageal reflux disease without esophagitis; F41.1 Generalized anxiety disorder; G43.119 Migraine with aura, intractable, without status migrainosus; Z23 Encounter for immunization | CPT/HCPCS: 90471; 90656; 99396 ==

== ENCOUNTER 2025-06-05 10:38 | Outpatient (AMB) | payer OTHER, SELFPAY ==
[2025-06-05 10:46] VITALS: BP 142/78; PULSE 90; O2SAT 96; BMI 27.4
--- NOTE | 2025-06-05 10:46 | MHC.OFFVIS ---
Vital Signs 06/05/25 10:46 Height 5 ft 2 in Weight 150 lb BMI 27.4 BP 142/78 H Blood Pressure Location Rt brachial Position Sitting Pulse 90 Pulse Source Pulse Oximeter Pulse Oximetry (%) 96 Oxygen Delivery Method Room Air Intake Visit Reasons: Follow up s/p colonoscopy Intake Note: Est pt for mgmt of GERD + CIC. S/P Duo. CC; Pt denies any GI sx or concerns at this time. Equipment Services Associate Required: Yes Equipment Services Associate Services: Equipment Services Associate Offered & Declined Accompanied by: Spouse Allergies ibuprofen (From Motrin) Allergy (Intermediate, Verified 06/05/25 10:54) ITCHING-VAGINAL, vaginal discomfort sumatriptan (From Imitrex) Allergy (Mild, Verified 06/05/25 10:54) RASH pregabalin Allergy (Unknown, Verified 06/05/25 10:54) swelling methylprednisolone Allergy (Verified 06/05/25 10:54) Vomiting HPI HPI Follow up s/p colonoscopy: Details: LAST VISIT Colon cancer screening Gastroesophageal reflux disease Long-term current use of proton pump inhibitor therapy Plan Patient denies any GI, cardiac or respiratory symptoms.? However patient does report that she takes omeprazole daily and states that her symptoms are suppressed for the most part. Patient reports to be on this medications for very long time. Denies any nausea or vomiting. Denies any epigastric pain, however will send patient for upper endoscopy, long treatment of PPI. Avoid dietary triggers and late night snacking. Denies any issues with anesthesia in the past.? Denies any history of sleep apnea.? No history infectious diseases in the past or present.? Not on any anticoagulation therapy.? No family or personal history of colon cancer or polyps.? Patient denies melena, hematochezia, unintentional weight loss or ribbon like stools.? Discussed at length the pre-procedure,? prep, diet & medications as well as what to expect prior, during and after the procedure.?? Stressed the importance of good bowel prep.? Recommended the use of Vaseline or Calmoseptine OTC & baby wipes with bowel movements to promote comfort.? ?Patient verbalizes understanding and agrees to plan of care.? She was given the opportunity to ask questions and all questions answered.? We will see her after the procedure.? New bisacodyl (Dulcolax (bisacodyl)) take 4 tabs at noon the day before your colonoscopy 20 mg (4 x 5 mg) PO ONCE 4 tabs 0RF 1 day Z12.11 polyethylene glycol 3350 (Miralax) As directed by gastroenterology department at [facility] 238 grams PO ONCE 238 grams 0RF Z12.11 UPPER ENDOSCOPY AND COLONOSCOPY EGD Findings:? Esophagus:? Normal esophageal mucosa was noted. The Z-line was at 40 cm and irregular up to 39 cm. Cold forceps biopsies were taken from GE junction to rule out myers's esophagus. This will also be sent for tissue cypher is myers's confirmed. There was a small hiatal hernia with the diaphragmatic pinch at 42 cm. Stomach:?Erythema and erosions in the antrum. Mild atrophy in the antrum with some redness along greater curvature suspicious for H Pylori related GIM. Retroflexion was performed in the cardia that showed Hill grade III hiatal hernia. Cold forceps biopsies were taken from the antrum and body of the stomach. Duodenum:? Normal duodenal mucosa. Colonoscopy Procedure:? The patient was then turned for the colonoscopy. A digital rectal exam was performed which was abnormal for external hemorrhoids.? A distal attachment cap was affixed to the tip of the scope and the colonoscope was then inserted through the anus and advanced through the colon and advanced to the cecum at 80 cm and terminal ileum.? Appendiceal orifice and ileocecal valve were identified. Mucosa was carefully examined under high definition white light as the instrument was slowly withdrawn in a retrograde panoramic fashion. Retroflexion was performed in rectum. The procedure was not difficult. The quality of the prep was BBPS: 3+2+3 = adequate Withdrawal time 7 minutes Limitations: No limitations Findings: Mucosa: Normal colon and terminal ileum mucosa. Protruding lesions: Large internal hemorrhoids without stigmata of recent bleeding.Excavated lesions: [id number] diverticulosis of left sided colon Impression: 1. Irregular Z line (biopsy, tissue cypher) 2. Hiatal hernia 3. Gastritis (biopsy) 4. Normal duodenum 5. Normal colon and terminal ileum mucosa 6. Diverticulosis 7. Internal and external hemorrhoids Recommendations:?? Follow-up path results Cont omeprazole Avoid NSAIDs H Pylori treatment if biopsies + Repeat colonoscopy for CRC screening in 10 years. PATHOLOGY RESULTS Diagnosis A. Gastric antrum, biopsy: Gastric antral mucosa with reactive changes, focal gland atrophy, intestinal metaplasia (complete and incomplete), and minimal chronic inactive gastritis; negative for H. pylori and dysplasia. B. Gastric body, biopsy: Gastric body mucosa with reactive changes, focal gland atrophy, intestinal metaplasia (complete) and mild chronic inactive gastritis; negative for H. pylori and dysplasia. C. Esophagogastric junction, biopsy: Squamous mucosa with few intraepithelial neutrophils consistent with esophagitis, and columnar mucosa with mild chronic inflammation; negative for intestinal metaplasia and dysplasia TODAY'S VISIT Patient is here today for follow-up and to discuss upper endoscopy and colonoscopy results. Patient denies any ill effects from the prep, seizure procedure itself. Patient reports to be feeling fairly well. She takes omeprazole in the morning and her symptoms are suppressed. However patient admits that occasionally depending on what she eats she might have epigastric pain. Patient reports that she will take [id number] anti acid medication and it helps. Patient does not remember the name of the medication. Patient reports that it's a liquid form. Incomplete and complete intestinal metaplasia seen in the stomach. Patient denies having any family history of gastric cancer. Patient is not a drinker current does not smoke cigarettes. H pylori was negative. Colonoscopy with no polyps, moderate internal hemorrhoids and diverticulosis found. Colonoscopy will be repeated in 10 years. Patient reports taking senna daily. Moves her bowels without any issues. [facility] Medical History (Updated 06/05/25 @ 11:15 by Leandra Hensley, [facility]) Diverticulosis Sleep apnea Breast pain, right Cervical cancer screening Colon cancer screening Paronychia Snoring Osteopenia Asthma Carpal tunnel syndrome Tarsal tunnel syndrome Impaired glucose tolerance Hypercholesterolemia Hypertension Overweight (BMI 25.0-29.9) Migraine Gastroesophageal reflux disease Surgical History History of hysteroscopy History of tubal ligation Keloid scar Family History Father Hypertension Mother High cholesterol Osteoporosis Maternal Aunt Brain tumor Sister Diabetes Poor high blood pressure control Brother Diabetes Poor high blood pressure control Social History Household Members Other:: grandson Housing: Apartment Alcohol intake: never Patient Tobacco Use Status: Never used Tobacco Tobacco use type: Cigarette e-Cigarette/Vaping Use: Never Used Second Hand Smoke Exposure: No service: No Current occupational status: unemployed Sexual orientation: Straight/Heterosexual Gender identity: Female Cognitive needs: No Hearing needs: No Vision needs: Yes Female Reproductive History Menstrual Age of Menarche: 9 Review of Systems Const Denies weight gain and Denies weight loss ENT Reports no additional complaints, Denies dysphagia and Denies odynophagia Card Reports no additional complaints Resp Reports no additional complaints GI Denies abdominal pain, Denies belching, Denies melena, Reports bloating, Denies change in bowel habits, Reports constipation (Occasional), Denies dysphagia, Denies excessive flatus, Denies dyspepsia, Reports heartburn (Occasional), Denies diarrhea, Denies loose stools, Denies nausea, Denies odynophagia and Denies vomiting Musc Reports no additional complaints Neuro Reports no additional complaints Psych Reports no additional complaints Endo Reports no additional complaints Physical Exam Vital Signs: Last Vital Signs Pulse 90 06/05/25 10:46 BP 142/78 H 06/05/25 10:46 Pulse Ox 96 06/05/25 10:46 Oxygen Delivery Method Room Air 06/05/25 10:46 BMI result Body Mass Index 27.4 Const General: healthy appearing, no acute distress and well developed Nutritional Appearance: well nourished Orientation/consciousness: patient oriented x3 Resp Effort & Inspection: normal respiratory effort, able to speak in complete sentences, no tracheal deviation and symmetric chest movement Auscultation: clear to auscultation bilaterally Cardio Rate: regular rate GI Inspection: Yes normal to inspection and No distended Palpation (GI): Soft to palpation, not firm, nontender and No hepatosplenomegaly present Auscultation: normal bowel sounds General: Yes no CVA tenderness Back/Spine/Pelvis Back: no CVA tenderness Skin General skin exam: elasticity normal, turgor normal and dry skin Neuro General: patient oriented x3 Psych Appearance: grossly normal Mental Status: mental status grossly normal Assessment & Plan Assessment & Plan (1) Gastroesophageal reflux disease: Code(s): K21.9 - Gastro-esophageal reflux disease without esophagitis Category: Medical Qualifiers: Esophagitis presence: esophagitis presence not specified Qualified Code(s): K21.9 - Gastro-esophageal reflux disease without esophagitis (2) Constipation: Code(s): K59.00 - Constipation, unspecified Qualifiers: Constipation type: slow transit constipation Qualified Code(s): K59.01 - Slow transit constipation (3) Postprandial abdominal bloating: Code(s): R14.0 - Abdominal distension (gaseous) (4) Diverticulosis: Code(s): K57.90 - Diverticulosis of intestine, part unspecified, without perforation or abscess without bleeding Category: Medical (5) Status post colonoscopy: Code(s): Z98.890 - Other specified postprocedural states (6) Gastric intestinal metaplasia: Code(s): K31.A0 - Gastric intestinal metaplasia, unspecified Plan Patient will continue taking omeprazole daily. Avoid dietary triggers late night snacking. Staying upright for minimum 3 hours after meals discussed with patient. Patient will continue taking senna daily. Increase fluid intake and activity to promote bowel motility. Intestinal metaplasia found in her stomach complete pending complete and we will send her for upper endoscopy after she returns to the office in 6 months. Patient was instructed to call us if she will have any GI concerning symptoms. She is agreeable to this plan and verbalizes understanding of instructions. She was given the opportunity to ask questions and all questions answered. Thank you for allowing me to participate in her care Coding Level of Care Code Est Pt Level 4 ([id number]) Add On Problem Visit Only Diagnoses Gastroesophageal reflux disease, unspecified whether esophagitis present K21.9 Esophagitis presence: esophagitis presence not specified Slow transit constipation K59.01 Constipation type: slow transit constipation Postprandial abdominal bloating R14.0 Diverticulosis K57.90 Status post colonoscopy Z98.890 Gastric intestinal metaplasia K31.A0 Time Spent (min) 35 Comment 25 minutes spent with patient and additional 10 minutes spent reviewing her records
--- OUTSIDE RECORDS SUMMARY | 2025-06-05 17:46 | XMS_ITS | Patient Health Record ---
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
== END 2025-06-05 11:05 | disposition home or self-care (01) ==
LOC: HO.HGI 10:38
PROVIDERS: PCP Internal Medicine; Visit Provider Nurse Practitioner Family
DX: K21.9 Gastro-esophageal reflux disease without esophagitis (principal); K59.01 Slow transit constipation; R14.0 Abdominal distension (gaseous); K57.90 Diverticulosis of intestine, part unspecified, without perforation or abscess without bleeding; Z98.890 Other specified postprocedural states; K31.A0 Gastric intestinal metaplasia, unspecified
CPT/HCPCS: 99214

== ENCOUNTER → 2025-06-05 10:38 | Outpatient (BNVA) | payer OTHER, SELFPAY | PROVIDERS: PCP Internal Medicine; Visit Provider Nurse Practitioner Family | DX: K21.9 Gastro-esophageal reflux disease without esophagitis (principal); K59.01 Slow transit constipation; R14.0 Abdominal distension (gaseous); K57.90 Diverticulosis of intestine, part unspecified, without perforation or abscess without bleeding; K31.A0 Gastric intestinal metaplasia, unspecified; Z98.890 Other specified postprocedural states | CPT/HCPCS: 99212 ==